=== PATIENT | female | born 1965 | race Asian ===

== ENCOUNTER → 2020-07-16 15:24 | Outpatient (CLI) | payer MEDICARE, SELFPAY ==
[2020-07-16 17:24] LABS: Basophil# 0.04 X10^3/uL; Basophil% 0.4 % (0-1); Eosinophil# 0.09 X10^3/uL; Eosinophils% 0.9 % (0-5); Hematocrit 46.9 % (37-47); Hemoglobin 15.3 g/dL (12.0-15.0); Lymphocyte % 23.7 % (19-41); Mean Corp Hgb Conc 32.6 g/dL (32-36); Mean Corpuscular Hgb 30.6 pg (27.0-32.0); Mean Corpuscular Volume 93.8 fL (81-99); Mean Platelet Vol. 9.8 fl (6.2-12.0); Monocyte# 0.54 X10^3/uL; Monocyte% 5.3 % (0-10); NRBC Flagged by Analyzer 0 % (0-5); Neutrophil # 7.04 X10^3/uL (2.7-7.7); Neutrophil % 69.4 % (47-70); Platelet Count 261 K/mm3 (150-450); RBC Distribution Width CV 12.1 % (11.6-14.6); RBC Distribution Width SD 41.9 fl (35.1-43.9); White Blood Count 10.1 K/mm3 (4.4-11.0)
[2020-07-16 18:44] LABS: AST(SGOT) 17 U/L (15-37); Alanine Aminotransfer ALT/SGPT 23 U/L (13-56); Alkaline Phosphatase 69 U/L (45-117); Anion Gap 8 (5-15); BUN 9 mg/dL (7-18); BUN/Creat Ratio 10.2 RATIO (10-20); Calcium,Total 9.7 mg/dL (8.5-10.1); Chloride 102 mmol/L (98-107); Creatinine, Serum 0.88 mg/dL (0.55-1.02); EST Glomerular Filtration Rate 70 mL/min (>60); Est Glom Filt Rate - Afr Amer 85 mL/min (>60); Globulin 4.1 g/dL (2.2-4.2); Glucose 114 mg/dL (74-106); Potassium 3.7 mmol/L (3.5-5.1); Protein, Total 8.1 g/dL (6.4-8.2); Sodium Level 138 mmol/L (136-145); Thyroid Stim Hormone (TSH) 1.87 uIU/mL (0.358-3.74)
[2020-07-17 09:27] LABS: Hepatitis C Antibody Non-Reactive (Nonreactive)
== END ==
PROVIDERS: PCP Family Medicine Geriatric Medicine; Visit Provider Family Medicine Geriatric Medicine
DX: F31.9 Bipolar disorder, unspecified (principal); R53.83 Other fatigue; Z13.89 Encounter for screening for other disorder
CPT/HCPCS: 36415; 80053; 80178; 84443; 85025; 86803

== ENCOUNTER → 2020-07-20 09:47 | Outpatient (CLI) | payer MEDICARE, SELFPAY ==
--- NOTE | 2020-07-20 09:54 | CT_ITS ---
STUDY: CT CHEST WITHOUT CONTRAST- LOW DOSE SCREENING PROTOCOL REASON FOR EXAM: Female, 54 years old. Former smoker. Quit smoking less than 20 years ago. 10 pack per year history. No current symptoms of lung cancer or pulmonary infection. Shared decision-making with referring PCP documented in patient''s record. RADIATION DOSAGE (If Supplied By Facility): CTDIvol = ( 2.01 ) mGy, DLP = ( 56.65 ) mGycm TECHNIQUE: Low dose screening CT examination performed from the base of the neck to the upper abdomen. Sagittal and coronal reformatted images performed. Sagittal and coronal MIP images provided. The measurements provided are average, rounded measurements per ACR guidelines. COMPARISON: None. FINDINGS: The lungs are normal. There is no demonstrated pleural abnormality. Normal heart and pericardium. Normal mediastinum. Normal hilar regions. Normal unenhanced pulmonary arteries. Normal aorta arch and descending thoracic aorta. Normal osseous structures. There is no demonstrated abnormality of the visualized upper abdomen. CT/Low Dose CT Lung Screening IMPRESSION: 1. No significant indeterminate incidental findings requiring additional imaging. 2. Incidental findings include mild bilateral apical scarring.. ASSESSMENT CATEGORY: LungRADS 1 - Negative. Continue annual screening with LDCT in 12 months, per established ACR guidelines. Electronically Signed: Nahum Rao MD at 12:16 EST Tel , Service support ,
== END ==
PROVIDERS: PCP Family Medicine Geriatric Medicine; Referring Provider Family Medicine Geriatric Medicine; Visit Provider Family Medicine Geriatric Medicine
DX: Z87.891 Personal history of nicotine dependence (principal)
CPT/HCPCS: 71271

== ENCOUNTER → 2020-07-29 10:19 | Outpatient (CLI) | payer MEDICARE, SELFPAY ==
--- NOTE | 2020-07-29 10:23 | BI_ITS ---
MAMMOGRAPHY - BILATERAL SCREENING 3-D TOMOSYNTHESIS REASON FOR EXAM: Female, 54 years old. SCREENING PERTINENT HISTORY: Previous right lumpectomy. TECHNIQUE: 2-D mammograms and 3-D Tomosynthesis of the breast (s) were performed. CAD was performed. COMPARISON: 2018 FINDINGS: The breast composition is composed of scattered fibroglandular density. Scattered benign calcifications are seen. No dense spiculated masses or suspicious microcalcifications are identified. Stable architectural distortion in the right breast from previous surgery.. There is no skin thickening or retraction. There has been no significant change since the prior study. BI/SCRN MAMM (CAD)W/ALINE BILAT IMPRESSION: No mammographic signs of malignancy. Routine yearly mammograms recommended. ASSESSMENT CATEGORY: BIRADS Category 2: Benign. A letter regarding these results will be sent to the patient by the facility within 30 days. FOLLOW UP RECOMMENDATION: Yearly follow up mammogram recommended. (A) Approximately 10% of breast cancers are not detected by mammography. A normal mammogram should not delay biopsy of a clinically suspicious abnormality. Electronically Signed: Rambo Barnes MD at 14:52 EDT , Service support ,
== END ==
PROVIDERS: PCP Family Medicine Geriatric Medicine; Referring Provider Family Medicine Geriatric Medicine; Visit Provider Family Medicine Geriatric Medicine
DX: Z12.31 Encounter for screening mammogram for malignant neoplasm of breast (principal)
CPT/HCPCS: 77063; 77067

== ENCOUNTER → 2020-08-26 10:55 | Outpatient (CLI) | payer MEDICARE, SELFPAY | PROVIDERS: PCP Family Medicine Geriatric Medicine; Visit Provider Family Medicine Geriatric Medicine | DX: F31.9 Bipolar disorder, unspecified (principal) | CPT/HCPCS: 36415; 80178 ==

== ENCOUNTER → 2020-09-06 09:06 | Outpatient (CLI) | payer MEDICARE, SELFPAY ==
[2020-09-06 09:40] LABS: Hematocrit 44.9 % (37-47); Hemoglobin 14.5 g/dL (12.0-15.0); Mean Corp Hgb Conc 32.3 g/dL (32-36); Mean Corpuscular Hgb 30.2 pg (27.0-32.0); Mean Corpuscular Volume 93.5 fL (81-99); Mean Platelet Vol. 9.3 fl (6.2-12.0); Platelet Count 196 K/mm3 (150-450); RBC Distribution Width CV 11.9 % (11.6-14.6); RBC Distribution Width SD 41.2 fl (35.1-43.9); White Blood Count 7.3 K/mm3 (4.4-11.0)
[2020-09-06 09:57] LABS: Hemoglobin A1c 5.4 % (3.8-5.6)
[2020-09-06 10:27] LABS: Vitamin D,25 Hydroxy 19.1 ng/mL
[2020-09-06 10:36] LABS: ALB/GLOB Ratio 0.9 RATIO (0.9-2.4); AST(SGOT) 16 U/L (15-37); Alanine Aminotransfer ALT/SGPT 19 U/L (13-56); Albumin, Serum 3.7 g/dL (3.2-5.0); Alkaline Phosphatase 61 U/L (45-117); Anion Gap 5 (5-15); BUN 14 mg/dL (7-18); BUN/Creat Ratio 16.6 RATIO (10-20); Calcium,Total 8.9 mg/dL (8.5-10.1); Chloride 108 mmol/L (98-107); Cholesterol 206 mg/dL (200); Creatinine, Serum 0.84 mg/dL (0.55-1.02); EST Glomerular Filtration Rate 74 mL/min (>60); Est Glom Filt Rate - Afr Amer 90 mL/min (>60); Glucose 107 mg/dL (74-106); High Density Lipoprotein 75 mg/dL; Potassium 3.8 mmol/L (3.5-5.1); Prolactin 90.8 ng/mL; Protein, Total 7.7 g/dL (6.4-8.2); Sodium Level 140 mmol/L (136-145); Thyroid Stim Hormone (TSH) 2.87 uIU/mL (0.358-3.74); Triglycerides 108 mg/dL; Very Low Density Lipoprotein 22 mg/dL (5-40)
== END ==
PROVIDERS: PCP Family Medicine Geriatric Medicine
DX: E55.9 Vitamin D deficiency, unspecified (principal); E78.2 Mixed hyperlipidemia; Z79.899 Other long term (current) drug therapy
CPT/HCPCS: 36415; 80053; 80061; 80178; 82306; 83036; 84146; 84443; 85027

== ENCOUNTER → 2020-11-01 11:40 | Outpatient (CLI) | payer MEDICARE, SELFPAY | PROVIDERS: PCP Family Medicine Geriatric Medicine; Referring Provider Internal Medicine Gastroenterology; Visit Provider Internal Medicine Gastroenterology | DX: F25.9 Schizoaffective disorder, unspecified (principal); F31.9 Bipolar disorder, unspecified | CPT/HCPCS: 36415; 80178 ==

== ENCOUNTER → 2020-11-04 | Outpatient (CLI) | payer MEDICARE, SELFPAY ==
--- NOTE | 2020-11-04 12:15 | COLBX_PTH ---
PATIENT: ANICETO BERNAL LOC: [facility] U#:[id number] AGE/SX: 55/F ROOM: RE11/04/[address]: Dr. Sebas Brooks MD : 1965 BED: DIS: 11/04/2020 SPEC #: [id number] RECD: 11/04/20 14:58 STATUS: MELISSA RESierra #: [id number] RAMYA: 11/04/20 12:[address]: Sebas Brooks DEPT: SURGICAL PATHOLOGY RECD BY: Lynn Funes ENTERED: 11/05/20 08:08 SP TYPE: COLON BX OTHR DR: Dr. Mahin Thomas MD [facility] Tissues: COLON BIOPSY Procedures: Surgery Specimen Level IV HEADER OPERATION: Colonoscopy with polypectomy PRE-OP DIAGNOSIS: Positive stool test TISSUE SUBMITTED: Right colon polyp, rule out adenoma MICROSCOPIC DIAGNOSIS Right colon polyp, biopsy: Fragments of tubular adenoma. AM:layla 11/06/2020 MICROSCOPIC DESCRIPTION Slides are reviewed. GROSS DESCRIPTION Received in fixative is one container labeled with the patient's name and designated right colon. The specimen consists of multiple irregular fragments of light velasquez soft tissue that in aggregate measure 0.8 x 0.2 x 0.1 cm. The specimen is totally submitted in one cassette. / SJ:rg 11/05/20 TC:5 CPT: 53733
== END | disposition home or self-care (01) ==
LOC: LAB 15:23 → LABSPEC 15:25
PROVIDERS: PCP Family Medicine Geriatric Medicine; Visit Provider Internal Medicine Gastroenterology
DX: R19.5 Other fecal abnormalities (principal)
CPT/HCPCS: 88305

== ENCOUNTER 2021-07-17 13:06 | Outpatient (CLI) | payer MEDICARE, SELFPAY ==
[2021-07-17 17:45] LABS: Absolute Lymphocyte Count 1.71 X10^3/uL (0.83-4.51); Absolute Neutrophil Count 4.3 X10^3/uL (2.0-7.7); Basophil# 0.03 X10^3/uL; Basophil% 0.5 % (0-1); Eosinophil# 0.08 X10^3/uL; Eosinophils% 1.2 % (0-5); Hematocrit 43.9 % (37-47); Hemoglobin 14.8 g/dL (12.0-15.0); Lymphocyte # 1.71 X10^3/ul (0.83-4.51); Lymphocyte % 26.2 % (19-41); Mean Corp Hgb Conc 33.7 g/dL (32-36); Mean Corpuscular Hgb 30.3 pg (27.0-32.0); Monocyte# 0.38 X10^3/uL; Monocyte% 5.8 % (0-10); NRBC Flagged by Analyzer 0 % (0-5); Neutrophil # 4.31 X10^3/uL (2.7-7.7); Platelet Count 220 K/mm3 (150-450); RBC Distribution Width CV 11.9 % (11.6-14.6); RBC Distribution Width SD 38.7 fl (35.1-43.9); Red Blood Count 4.88 M/mm3 (4.2-5.4); White Blood Count 6.5 K/mm3 (4.4-11.0)
[2021-07-17 18:09] LABS: ALB/GLOB Ratio 0.9 RATIO (0.9-2.4); AST(SGOT) 14 U/L (15-37); Alanine Aminotransfer ALT/SGPT 17 U/L (13-56); Albumin, Serum 3.8 g/dL (3.2-5.0); Alkaline Phosphatase 68 U/L (45-117); Anion Gap 4 (5-15); BUN 8 mg/dL (7-18); BUN/Creat Ratio 9.5 RATIO (10-20); Calcium,Total 8.9 mg/dL (8.5-10.1); Chloride 106 mmol/L (98-107); Creatinine, Serum 0.84 mg/dL (0.55-1.02); EST Glomerular Filtration Rate 75 mL/min (>60); Est Glom Filt Rate - Afr Amer 90 mL/min (>60); Globulin 4.1 g/dL (2.2-4.2); Glucose 120 mg/dL (74-106); Potassium 3.7 mmol/L (3.5-5.1); Protein, Total 7.9 g/dL (6.4-8.2); Sodium Level 139 mmol/L (136-145); Thyroid Stim Hormone (TSH) 1.33 uIU/mL (0.358-3.74)
== END 2021-07-17 23:59 | disposition home or self-care (01) ==
LOC: POLAB3 13:08
PROVIDERS: PCP Family Medicine Geriatric Medicine; Visit Provider Family Medicine Geriatric Medicine
DX: R53.83 Other fatigue (principal)
CPT/HCPCS: 36415; 80053; 84443; 85025

== ENCOUNTER 2021-08-05 13:28 | Outpatient (CLI) | payer MEDICARE, SELFPAY ==
--- NOTE | 2021-08-05 13:34 | BI_ITS ---
MAMMOGRAPHY - BILATERAL SCREENING REASON FOR EXAM: Female, 55 years old. Routine annual screening examination. PERTINENT HISTORY: Personal history of breast cancer. Prior right lumpectomy and radiation treatment. TECHNIQUE: Digital bilateral breast aline (3D mammographic acquisition) in the CC and MLO projections. 2-D mediolateral oblique (MLO) and craniocaudad (CC) views of both breasts were obtained. CAD: Full Field Digital Mammography with Computer Added Detection was performed. COMPARISON: Comparison is made with prior study dated 07/29/2020. FINDINGS: Breast Composition: There are scattered areas of fibroglandular density. There are no dominant masses or suspicious calcifications. The patient is status post lumpectomy in the deep upper lateral aspect of the right breast with resultant postoperative deformity and skin thickening. Stable small benign appearing bilateral axillary lymph nodes. No other significant abnormalities are identified. There has been no significant change since the prior study. BI/SCRN MAMM (CAD)W/ALINE BILAT IMPRESSION: Stable bilateral screening mammogram. Yearly follow-up mammogram recommended. (A) ASSESSMENT CATEGORY: BIRADS Category 2: Benign. A letter regarding these results will be sent to the patient by the facility within 30 days. Approximately 10% of breast cancers are not detected by mammography. A normal mammogram should not delay biopsy of a clinically suspicious abnormality. [id number] Electronically Signed: Romeo English MD at 14:25 EDT ,
== END 2021-08-05 23:59 | disposition home or self-care (01) ==
PROVIDERS: PCP Family Medicine Geriatric Medicine; Visit Provider Family Medicine Geriatric Medicine
DX: Z12.31 Encounter for screening mammogram for malignant neoplasm of breast (principal); Z85.3 Personal history of malignant neoplasm of breast
CPT/HCPCS: 77063; 77067

== ENCOUNTER 2021-11-20 07:37 | Outpatient (CLI) | payer MEDICARE, SELFPAY ==
[2021-11-20 08:56] LABS: Vitamin D,25 Hydroxy 11.7 ng/mL
[2021-11-20 09:56] LABS: ALB/GLOB Ratio 0.9 RATIO (0.9-2.4); AST(SGOT) 11 U/L (15-37); Alanine Aminotransfer ALT/SGPT 13 U/L (13-56); Albumin, Serum 3.7 g/dL (3.2-5.0); Alkaline Phosphatase 62 U/L (45-117); Anion Gap 6 (5-15); BUN 8 mg/dL (7-18); BUN/Creat Ratio 10.3 RATIO (10-20); Calcium,Total 9.1 mg/dL (8.5-10.1); Chloride 109 mmol/L (98-107); Creatinine, Serum 0.78 mg/dL (0.55-1.02); EST Glomerular Filtration Rate 82 mL/min (>60); Est Glom Filt Rate - Afr Amer 99 mL/min (>60); Globulin 4.1 g/dL (2.2-4.2); Glucose 95 mg/dL (74-106); Potassium 3.6 mmol/L (3.5-5.1); Prolactin 89.6 ng/mL; Protein, Total 7.8 g/dL (6.4-8.2); Sodium Level 141 mmol/L (136-145); Thyroid Stim Hormone (TSH) 5.09 uIU/mL (0.358-3.74)
== END 2021-11-20 23:59 | disposition home or self-care (01) ==
PROVIDERS: PCP Family Medicine Geriatric Medicine; Visit Provider Counselor Mental Health
DX: E55.9 Vitamin D deficiency, unspecified (principal); Z79.899 Other long term (current) drug therapy
CPT/HCPCS: 36415; 80053; 80178; 82306; 84146; 84443

== ENCOUNTER 2022-01-15 12:45 | Outpatient (CLI) | payer MEDICARE, SELFPAY ==
[2022-01-15 16:58] LABS: Absolute Lymphocyte Count 2.26 X10^3/uL (0.83-4.51); Basophil# 0.05 X10^3/uL; Basophil% 0.5 % (0-1); Hematocrit 43.4 % (37-47); Hemoglobin 14.3 g/dL (12.0-15.0); Lymphocyte # 2.26 X10^3/ul (0.83-4.51); Lymphocyte % 22.5 % (19-41); Mean Corp Hgb Conc 32.9 g/dL (32-36); Mean Corpuscular Hgb 29.9 pg (27.0-32.0); Mean Corpuscular Volume 90.8 fL (81-99); Mean Platelet Vol. 10.1 fl (6.2-12.0); Monocyte# 0.58 X10^3/uL; Monocyte% 5.8 % (0-10); NRBC Flagged by Analyzer 0 % (0-5); Neutrophil # 7.03 X10^3/uL (2.7-7.7); Neutrophil % 69.9 % (47-70); Platelet Count 248 K/mm3 (150-450); RBC Distribution Width CV 12.3 % (11.6-14.6); RBC Distribution Width SD 41.1 fl (35.1-43.9); Red Blood Count 4.78 M/mm3 (4.2-5.4); White Blood Count 10.1 K/mm3 (4.4-11.0)
[2022-01-15 17:16] LABS: ALB/GLOB Ratio 0.9 RATIO (0.9-2.4); AST(SGOT) 17 U/L (15-37); Alanine Aminotransfer ALT/SGPT 21 U/L (13-56); Albumin, Serum 3.7 g/dL (3.2-5.0); Alkaline Phosphatase 75 U/L (45-117); Anion Gap 9 (5-15); BUN 6 mg/dL (7-18); BUN/Creat Ratio 7.8 RATIO (10-20); Calcium,Total 9.5 mg/dL (8.5-10.1); Chloride 108 mmol/L (98-107); Creatinine, Serum 0.76 mg/dL (0.55-1.02); EST Glomerular Filtration Rate 83 mL/min (>60); Est Glom Filt Rate - Afr Amer 100 mL/min (>60); Globulin 4.2 g/dL (2.2-4.2); Glucose 113 mg/dL (74-106); Potassium 3.4 mmol/L (3.5-5.1); Protein, Total 7.9 g/dL (6.4-8.2); Sodium Level 140 mmol/L (136-145); Thyroid Stim Hormone (TSH) 1.39 uIU/mL (0.358-3.74); Vitamin D,25 Hydroxy 14.5 ng/mL
== END 2022-01-15 23:59 | disposition home or self-care (01) ==
LOC: POLAB3 12:47
PROVIDERS: PCP Family Medicine Geriatric Medicine; Visit Provider Family Medicine Geriatric Medicine
DX: R53.83 Other fatigue (principal); E55.9 Vitamin D deficiency, unspecified
CPT/HCPCS: 36415; 80053; 80178; 82306; 84443; 85025

== ENCOUNTER → 2022-07-23 | Outpatient (CLI) | payer MEDICARE, SELFPAY ==
[2022-07-23 15:07] LABS: Absolute Lymphocyte Count 2.02 X10^3/uL (0.83-4.51); Absolute Neutrophil Count 6.8 X10^3/uL (2.0-7.7); Basophil# 0.06 X10^3/uL; Basophil% 0.6 % (0-1); Eosinophil# 0.07 X10^3/uL; Eosinophils% 0.7 % (0-5); Hematocrit 46.1 % (37-47); Hemoglobin 14.9 g/dL (12.0-15.0); Lymphocyte # 2.02 X10^3/ul (0.83-4.51); Lymphocyte % 21.3 % (19-41); Mean Corp Hgb Conc 32.3 g/dL (32-36); Mean Corpuscular Hgb 30.2 pg (27.0-32.0); Mean Corpuscular Volume 93.5 fL (81-99); Mean Platelet Vol. 10.3 fl (6.2-12.0); Monocyte% 5.3 % (0-10); NRBC Flagged by Analyzer 0 % (0-5); Neutrophil % 71.8 % (47-70); Platelet Count 207 K/mm3 (150-450); RBC Distribution Width CV 12.1 % (11.6-14.6); RBC Distribution Width SD 41.6 fl (35.1-43.9); Red Blood Count 4.93 M/mm3 (4.2-5.4); White Blood Count 9.5 K/mm3 (4.4-11.0)
[2022-07-23 15:57] LABS: ALB/GLOB Ratio 0.9 RATIO (0.9-2.4); AST(SGOT) 18 U/L (15-37); Alanine Aminotransfer ALT/SGPT 24 U/L (13-56); Albumin, Serum 3.8 g/dL (3.2-5.0); Alkaline Phosphatase 63 U/L (45-117); Anion Gap 6 (5-15); BUN 8 mg/dL (7-18); BUN/Creat Ratio 9.2 RATIO (10-20); Calcium,Total 9.5 mg/dL (8.5-10.1); Chloride 103 mmol/L (98-107); Creatinine, Serum 0.87 mg/dL (0.55-1.02); EST Glomerular Filtration Rate 71 mL/min (>60); Est Glom Filt Rate - Afr Amer 86 mL/min (>60); Globulin 4.1 g/dL (2.2-4.2); Glucose 91 mg/dL (74-106); Potassium 3.6 mmol/L (3.5-5.1); Protein, Total 7.9 g/dL (6.4-8.2); Sodium Level 138 mmol/L (136-145); Thyroid Stim Hormone (TSH) 1.57 uIU/mL (0.358-3.74)
== END | disposition home or self-care (01) ==
PROVIDERS: PCP Family Medicine Geriatric Medicine; Referring Provider Family Medicine Geriatric Medicine; Visit Provider Family Medicine Geriatric Medicine
DX: R53.83 Other fatigue (principal)
CPT/HCPCS: 36415; 80053; 84443; 85025

== ENCOUNTER → 2022-08-12 | Outpatient (CLI) | payer MEDICARE, SELFPAY ==
--- NOTE | 2022-08-12 13:50 | BI_ITS ---
MAMMOGRAPHY - BILATERAL SCREENING REASON FOR EXAM: Female, 56 years old. Routine annual screening examination. PERTINENT HISTORY: Personal history of breast cancer. TECHNIQUE: Digital bilateral breast aline (3D mammographic acquisition) in the CC and MLO projections. 2-D mediolateral oblique (MLO) and craniocaudad (CC) views of both breasts were obtained. CAD: Full Field Digital Mammography with Computer Added Detection was performed. COMPARISON: Comparison is made with prior study August 05, 2021 and July 29, 2020. FINDINGS: Breast Composition: There are scattered areas of fibroglandular density. There are no dominant masses or suspicious calcifications. Once again, the patient is status post lumpectomy in the deep upper lateral aspect of the right breast with resultant postoperative deformity and skin thickening. Dystrophic calcification is seen in the axillary region of the breasts. Stable small benign-appearing axillary lymph nodes. No other significant abnormalities are identified. There has been no significant change since the prior study. BI/SCRN MAMM (CAD)W/ALINE BILAT IMPRESSION: Stable bilateral screening mammogram. Yearly follow-up mammogram recommended. (A) ASSESSMENT CATEGORY: BIRADS Category 2: Benign. A letter regarding these results will be sent to the patient by the facility within 30 days. Approximately 10% of breast cancers are not detected by mammography. A normal mammogram should not delay biopsy of a clinically suspicious abnormality. [id number] Electronically Signed: Romeo English MD at 15:02 EDT ,
--- NOTE | 2022-08-12 14:15 | US_ITS ---
STUDY: SUPERFICIAL ULTRASOUND - RIGHT GROIN. REASON FOR EXAM: Female, 56 years old. RT GROIN PALP LUMP TECHNIQUE: A superficial ultrasound was performed with real-time and static zuniga-scale imaging. COMPARISON: None. FINDINGS: The palpable abnormality corresponds to a 1.2 cm x 0.8 cm x 0.3 cm benign-appearing lymph node with a central echogenic hilum. US/Ext Non Vasc Limited/Soft Tiss IMPRESSION: The palpable abnormality corresponds to 1.2 cm x 0.8 cm x 0.3 cm benign-appearing lymph node. Electronically Signed: Romeo English MD at 10:04 EDT ,
== END | disposition home or self-care (01) ==
PROVIDERS: PCP Family Medicine Geriatric Medicine; Visit Provider Family Medicine Geriatric Medicine
DX: Z12.31 Encounter for screening mammogram for malignant neoplasm of breast (principal); Z85.3 Personal history of malignant neoplasm of breast
CPT/HCPCS: 76882; 77063; 77067

== ENCOUNTER → 2022-12-18 | Outpatient (CLI) | payer MEDICARE, SELFPAY ==
[2022-12-18 12:22] LABS: Absolute Lymphocyte Count 1.71 X10^3/uL (0.83-4.51); Absolute Neutrophil Count 5.9 X10^3/uL (2.0-7.7); Basophil# 0.04 X10^3/uL; Basophil% 0.5 % (0-1); Eosinophil# 0.07 X10^3/uL; Eosinophils% 0.9 % (0-5); Hematocrit 45.6 % (37-47); Hemoglobin 14.9 g/dL (12.0-15.0); Lymphocyte # 1.71 X10^3/ul (0.83-4.51); Mean Corp Hgb Conc 32.7 g/dL (32-36); Mean Corpuscular Hgb 30.8 pg (27.0-32.0); Mean Corpuscular Volume 94.2 fL (81-99); Mean Platelet Vol. 9.9 fl (6.2-12.0); Monocyte# 0.39 X10^3/uL; Monocyte% 4.8 % (0-10); NRBC Flagged by Analyzer 0 % (0-5); Neutrophil # 5.93 X10^3/uL (2.7-7.7); Neutrophil % 72.6 % (47-70); Platelet Count 230 K/mm3 (150-450); RBC Distribution Width SD 41.5 fl (35.1-43.9); Red Blood Count 4.84 M/mm3 (4.2-5.4); White Blood Count 8.2 K/mm3 (4.4-11.0)
[2022-12-18 12:46] LABS: Anion Gap 3 (5-15); BUN 5 mg/dL (7-18); BUN/Creat Ratio 5.6 RATIO (10-20); Calcium,Total 9.8 mg/dL (8.5-10.1); Chloride 107 mmol/L (98-107); EST Glomerular Filtration Rate 69 mL/min (>60); Est Glom Filt Rate - Afr Amer 83 mL/min (>60); Glucose 111 mg/dL (74-106); Potassium 3.9 mmol/L (3.5-5.1); Sodium Level 138 mmol/L (136-145)
[2022-12-18 13:11] LABS: Color, Urine Yellow (Yellow); Glucose, Dipstick Normal (Normal); Ketone-Dipstick Negative (Negative); Leukocyte Esterase-Dipstick Negative /ul (Negative); Nitrite-Dipstick Negative (Negative); Occult Blood-Urine Negative /ul (Negative); Protein-Dipstick Negative (Negative); Specific Gravity, Urine 1.005 (1.002-1.030); Urine Bilirubin Dipstick Negative (Negative); Urine Clarity Clear (Clear); Urine Urobilinogen Normal (Normal)
== END | disposition home or self-care (01) ==
LOC: POLAB3 11:28 → LABSPEC 12:48
PROVIDERS: PCP Family Medicine Geriatric Medicine; Referring Provider Family Medicine Geriatric Medicine; Visit Provider Family Medicine Geriatric Medicine
DX: N39.0 Urinary tract infection, site not specified (principal); I95.1 Orthostatic hypotension
CPT/HCPCS: 36415; 80048; 80178; 81002; 85025; 87086

== ENCOUNTER 2022-12-19 21:18 | Emergency (ER) | payer MEDICARE, SELFPAY ==
[2022-12-19 21:20] VITALS: BP 150/97; PULSE 65; RESP 18; TEMP 36.3; O2SAT 97; BMI 27.3
--- NOTE | 2022-12-19 21:35 | CT_ITS ---
STUDY: CT BRAIN WITHOUT CONTRAST REASON FOR EXAM: Female, 57 years old. Vertigo RADIATION DOSAGE (If Supplied By Facility): CTDIvol = ( 44.99 ) mGy, DLP = ( 812.98 ) mGycm TECHNIQUE: Transaxial CT imaging of the brain was performed without administration of intravenous contrast material. Individualized dose optimization techniques were used for this CT. COMPARISON: 11/08/2009 FINDINGS: Normal soft tissue structures. Normal calvarium. There is mild cerebral atrophy with widening of the extra-axial spaces and ventricular dilatation. There are areas of decreased attenuation within the white matter tracts of the supratentorial brain, consistent with microvascular disease changes. Normal basal ganglia and thalami. Normal brainstem. Normal cerebellum. There is no intracranial hemorrhage. There are no findings of an acute ischemic infarction. Normal visualized paranasal sinuses. CT/Brain/Head without Contrast IMPRESSION: Chronic involutional changes of the brain. Electronically Signed: Nahum Rao MD at 22:41 EDT ,
[2022-12-19 22:00] LABS: Absolute Lymphocyte Count 3.38 X10^3/uL (0.83-4.51); Absolute Neutrophil Count 6.5 X10^3/uL (2.0-7.7); Basophil# 0.06 X10^3/uL; Basophil% 0.5 % (0-1); Eosinophil# 0.18 X10^3/uL; Eosinophils% 1.6 % (0-5); Hematocrit 44.1 % (37-47); Hemoglobin 14.4 g/dL (12.0-15.0); Lymphocyte # 3.38 X10^3/ul (0.83-4.51); Lymphocyte % 30.9 % (19-41); Mean Corp Hgb Conc 32.7 g/dL (32-36); Mean Corpuscular Hgb 30.4 pg (27.0-32.0); Mean Platelet Vol. 9.5 fl (6.2-12.0); Monocyte# 0.79 X10^3/uL; Monocyte% 7.2 % (0-10); NRBC Flagged by Analyzer 0 % (0-5); Neutrophil # 6.51 X10^3/uL (2.7-7.7); Neutrophil % 59.5 % (47-70); Platelet Count 219 K/mm3 (150-450); RBC Distribution Width CV 11.9 % (11.6-14.6); Red Blood Count 4.74 M/mm3 (4.2-5.4)
[2022-12-19 22:20] LABS: Anion Gap 4 (5-15); BUN 6 mg/dL (7-18); BUN/Creat Ratio 6.2 RATIO (10-20); Calcium,Total 9.4 mg/dL (8.5-10.1); Chloride 108 mmol/L (98-107); Creatinine, Serum 0.97 mg/dL (0.55-1.02); EST Glomerular Filtration Rate 63 mL/min (>60); Est Glom Filt Rate - Afr Amer 76 mL/min (>60); Estimated Creatinine Clearance 45.41 ml/min; Glucose 117 mg/dL (74-106); Potassium 3.6 mmol/L (3.5-5.1); Sodium Level 139 mmol/L (136-145)
[2022-12-19 22:51] VITALS: BP 152/108; BP 155/114; BP 160/114; PULSE 55; PULSE 56; PULSE 60
[2022-12-19 22:56] VITALS: BP 155/114; PULSE 56; RESP 17
--- NOTE | 2022-12-19 23:19 | EDS_ITS ---
HPI History of Present Illness Chief Complaint: Dizziness Informant: patient Onset/Context/Timing Onset: Weeks Context: Gradual Onset Timing: Waxes and wanes Quality: Spinning Location: Head Worsened by: Nothing Relieved by: Nothing Narrative Narrative: Patient presents with dizziness that has been getting worse over the past few weeks. Patient states it came on gradually. Patient states it waxes and wanes. Patient states it feels like things are slowly spinning. Patient states nothing makes it worse and nothing makes it better. Patient does admit to some tinnitus that also comes and goes. Patient denies any fevers or chills. Patient denies any headaches. Patient denies any nausea or vomiting. Patient states that she saw her primary care physician for this. Patient states that her primary care physician reduced her dose of lithium because her lithium level was too high and he also started her on meclizine. Patient states that she has taken the meclizine but thinks that this makes it worse. [facility] Medical History (Updated 12/19/22 @ 23:[address] Gabo Zaragoza DO) Bipolar 1 disorder Schizo affective schizophrenia Home Medications benztropine 1 mg tablet 1 mg PO BID 12/19/22 [History Last Taken Unknown] lithium carbonate 150 mg capsule 300 mg PO DAILY 12/19/22 [History Last Taken Unknown] lithium carbonate 300 mg capsule 150 mg PO DAILY 12/19/22 [History Last Taken Unknown] meclizine 25 mg chewable tablet (Antivert) 25 mg PO 4X/DAY 12/19/22 [History Last Taken Unknown] risperidone 3 mg tablet (Risperdal) 1.5 mg PO DAILY 12/19/22 [History Last Taken Unknown] Allergy/AdvReac Type Severity Reaction Status Date / Time No Known Allergies Allergy Verified 12/19/22 21:18 Surgical History (Updated 12/19/22 @ 23:[address] Gabo Zaragoza DO) Hx of partial mastectomy Social History Smoking Status: Never smoker ROS ROS ED Constitutional Constitutional ED: Denies chills or fever(s) Eyes Eyes: Denies blurry vision or change in vision ENT ENT ED: Denies rhinorrhea or sore throat Cardiovascular Cardiovascular: Denies chest pain or palpitations Respiratory/Chest Respiratory/Chest: Denies cough or dyspnea Gastrointestinal Gastrointestinal: Denies nausea or vomiting Genitourinary Genitourinary ED: Denies dysuria or hematuria Musculoskeletal Musculoskeletal: Denies back pain or neck pain Integumentary Denies abscess or rash Neurologic Neurologic: Denies headache(s) or weakness Allergic/Immunologic Allergic/Immunologic ED: Denies mouth swelling or urticaria EXAM Physical Exam Const Vital Signs: 12/19/22 21:20 12/19/22 21:28 12/19/22 22:51 Temperature 97.4 F L Temperature Source Temporal Pulse Rate 65 Pulse Rate [Lying] 55 L Pulse Rate [Sitting (for 1 minute prior to obtaining)] 56 L Pulse Rate [Standing (for 1 minute prior to obtaining)] 60 Respiratory Rate 18 Respiratory Effort Normal Respiratory Pattern Normal Blood Pressure 150/97 H Blood Pressure [Lying] 152/108 H Blood Pressure [Sitting (for 1 minute prior to obtaining)] 160/114 H Blood Pressure [Standing (for 1 minute prior to obtaining)] 155/114 H Blood Pressure Mean 114 Blood Pressure Mean [Lying] 122 Blood Pressure Mean [Sitting (for 1 minute prior to obtaining)] 129 Blood Pressure Mean [Standing (for 1 minute prior to obtaining)] 127 Pulse Ox 97 Oxygen Delivery Method Room Air Positive well nourished and well developed General Appearance ED: well developed and NAD HEENT Reports moist mucous membranes Eyes PERRL and EOMs intact bilaterally Eyes Narrative: There is no nystagmus noted. Neck supple and no JVD Resp normal respiratory effort and clear to auscultation bilaterally Cardio regular rate, regular rhythm and no murmurs GI normal to inspection, nondistended, normoactive bowel sounds and non-tender Palpation: soft Extremity normal to inspection General Extremety ED: Negative for edema or tenderness General Extremity: Negative for edema Neuro oriented x3, CN's II-XII intact bilaterally and no sensory deficits noted Sensorium / Orientation: alert Motor Exam: strength 5/5 throughout Psych mental status grossly normal Skin no rashes or lesions noted MDM MDM MDM Narrative Medical decision making narrative: There transferred diagnosis includes central vertigo, peripheral vertigo, stroke, electrolyte abnormality, lithium toxicity, anemia, dehydration, and anxiety. CBC will be obtained to assess for leukocytosis and anemia. Basic metabolic profile will be obtained to assess for electrolyte abnormality and renal function. [place] level will be obtained to assess for lithium toxicity. CT scan of the brain will be obtained to assess for stroke and central vertigo. Lab Data Attestation: I reviewed the patient's lab results. Lab results narrative: CBC was reviewed and was within normal limits. Basic metabolic profile was reviewed and was within normal limits. [place] level was reviewed and was therapeutic at 0.90. Labs: Laboratory Results - last 24 hr 12/19/22 21:50 WBC 11.0 RBC 4.74 Hgb 14.4 Hct 44.1 MCV 93.0 MCH 30.4 MCHC 32.7 RDW Std Deviation 41.0 RDW Coeff of Bonnie 11.9 Plt Count 219 MPV 9.5 Immature Gran % (Auto) 0.300 Neut % (Auto) 59.5 Lymph % (Auto) 30.9 Hand % (Auto) 7.2 Eos % (Auto) 1.6 Baso % (Auto) 0.5 Absolute Neuts (auto) 6.5 Absolute Lymphs (auto) 3.38 Nucleated RBC % 0 Sodium 139 Potassium 3.6 Chloride 108 H Carbon Dioxide 27.0 Anion Gap 4 L BUN 6 L Creatinine 0.97 Estim Creat Clear Calc 45.41 Est GFR (MDRD) Af Amer 76 Est GFR (MDRD) Non-Af 63 BUN/Creatinine Ratio 6.2 L Glucose 117 H Calcium 9.4 [place] 0.90 Radiography Diagnostic Testing: Clinical Impression(s) from Imaging Studies Brain CT 12/19/22 21:35 IMPRESSION: Chronic involutional changes of the brain. Electronically Signed: Nahum Rao MD at 22:41 EDT , CT scan of the brain was obtained. There is no acute intracranial abnormality. There are chronic involutional changes noted. This was interpreted by the radiologist and was also independently reviewed by myself. Treatment and Re-Evaluation :: Orthostatic vital signs were reviewed and were negative. Patient was ordered a dose of Valium here. Patient declined this. Patient states she does not want to take benzodiazepines. I discussed with the patient that the only medications for vertigo are benzodiazepine such as Valium and antihistamine such as meclizine. Explained to the patient that since the meclizine seems to be making her dizziness worse, Valium would probably be a better alternative. Patient still does not want to take Valium. Patient was advised to drink plenty of fluids. Patient was instructed to follow-up with her primary care physician in 5 to 7 days for further evaluation. Patient understood and was agreeable with the plan. All questions were answered. Discharge Plan Triage Chief Complaint: Dizziness ED Provider: Gabo Zaragoza Dx/Rx/DC Orders Clinical Impression: Dizziness, Bipolar disorder, Schizoaffective disorder Instructions: ED Dizziness, Uncertain Cause Prescriptions: No Action lithium carbonate 300 mg capsule 150 mg PO DAILY lithium carbonate 150 mg capsule 300 mg PO DAILY benztropine 1 mg tablet 1 mg PO BID risperidone [Risperdal] 3 mg tablet 1.5 mg PO DAILY meclizine [Antivert] 25 mg tablet,chewable 25 mg PO 4X/DAY Primary Care Provider: Mahin Thomas Chi Referrals: Mahin Thomas Chi, MD [Primary Care Provider] - 3-5 Days Disposition Disposition: Home, Self Care
== END 2022-12-19 23:49 | disposition home or self-care (01) ==
PROVIDERS: Emergency Provider Emergency Medicine; PCP Family Medicine Geriatric Medicine; Visit Provider Emergency Medicine
DX: R42 Dizziness and giddiness (principal); F25.9 Schizoaffective disorder, unspecified; F31.9 Bipolar disorder, unspecified; H93.19 Tinnitus, unspecified ear; Z79.899 Other long term (current) drug therapy
CPT/HCPCS: 70450; 80048; 80178; 85025; 99285; A4216

== ENCOUNTER → 2022-12-21 | Outpatient (CLI) | payer MEDICARE, SELFPAY ==
[2022-12-21 17:39] LABS: AST(SGOT) 16 U/L (15-37); Alanine Aminotransfer ALT/SGPT 17 U/L (13-56); Albumin, Serum 3.8 g/dL (3.2-5.0); Alkaline Phosphatase 59 U/L (45-117); Anion Gap 5 (5-15); BUN 6 mg/dL (7-18); BUN/Creat Ratio 6.8 RATIO (10-20); Calcium,Total 9.3 mg/dL (8.5-10.1); Chloride 108 mmol/L (98-107); Creatinine, Serum 0.88 mg/dL (0.55-1.02); EST Glomerular Filtration Rate 70 mL/min (>60); Est Glom Filt Rate - Afr Amer 85 mL/min (>60); Free T3 1.9 pg/mL (2.18-3.98); Globulin 3.8 g/dL (2.2-4.2); Glucose 104 mg/dL (74-106); Potassium 3.7 mmol/L (3.5-5.1); Protein, Total 7.6 g/dL (6.4-8.2); Sodium Level 140 mmol/L (136-145); T4 Free Direct 0.97 ng/dL (0.76-1.46); Thyroid Stim Hormone (TSH) 1.74 uIU/mL (0.358-3.74)
== END | disposition home or self-care (01) ==
PROVIDERS: PCP Family Medicine Geriatric Medicine; Visit Provider Counselor Mental Health
DX: Z79.899 Other long term (current) drug therapy (principal)
CPT/HCPCS: 36415; 80053; 80178; 84439; 84443; 84481

== ENCOUNTER → 2022-12-25 | Outpatient (CLI) | payer MEDICARE, SELFPAY | END | disposition home or self-care (01) | LOC: LAB 08:48 | PROVIDERS: PCP Family Medicine Geriatric Medicine; Referring Provider Family Medicine Geriatric Medicine; Visit Provider Family Medicine Geriatric Medicine | DX: F20.9 Schizophrenia, unspecified (principal); F31.9 Bipolar disorder, unspecified | CPT/HCPCS: 36415; 80178 ==

== ENCOUNTER → 2023-01-21 | Outpatient (CLI) | payer MEDICARE, SELFPAY ==
[2023-01-21 15:17] LABS: Absolute Lymphocyte Count 2.16 X10^3/uL (0.83-4.51); Absolute Neutrophil Count 5.1 X10^3/uL (2.0-7.7); Basophil# 0.04 X10^3/uL; Basophil% 0.5 % (0-1); Eosinophil# 0.08 X10^3/uL; Hematocrit 43.6 % (37-47); Hemoglobin 14.8 g/dL (12.0-15.0); Lymphocyte # 2.16 X10^3/ul (0.83-4.51); Lymphocyte % 27.5 % (19-41); Mean Corp Hgb Conc 33.9 g/dL (32-36); Mean Corpuscular Hgb 31.4 pg (27.0-32.0); Mean Corpuscular Volume 92.6 fL (81-99); Mean Platelet Vol. 9.5 fl (6.2-12.0); Monocyte# 0.44 X10^3/uL; Monocyte% 5.6 % (0-10); NRBC Flagged by Analyzer 0 % (0-5); Neutrophil # 5.12 X10^3/uL (2.7-7.7); Neutrophil % 65.1 % (47-70); Platelet Count 226 K/mm3 (150-450); RBC Distribution Width CV 11.9 % (11.6-14.6); RBC Distribution Width SD 40.4 fl (35.1-43.9); Red Blood Count 4.71 M/mm3 (4.2-5.4); White Blood Count 7.9 K/mm3 (4.4-11.0)
[2023-01-21 15:50] LABS: ALB/GLOB Ratio 0.9 RATIO (0.9-2.4); AST(SGOT) 15 U/L (15-37); Alanine Aminotransfer ALT/SGPT 17 U/L (13-56); Albumin, Serum 3.6 g/dL (3.2-5.0); Alkaline Phosphatase 60 U/L (45-117); Anion Gap 3 (5-15); BUN 6 mg/dL (7-18); BUN/Creat Ratio 7.6 RATIO (10-20); Chloride 110 mmol/L (98-107); Creatinine, Serum 0.79 mg/dL (0.55-1.02); EST Glomerular Filtration Rate 80 mL/min (>60); Est Glom Filt Rate - Afr Amer 97 mL/min (>60); Glucose 119 mg/dL (74-106); Potassium 3.5 mmol/L (3.5-5.1); Protein, Total 7.6 g/dL (6.4-8.2); Sodium Level 140 mmol/L (136-145); Thyroid Stim Hormone (TSH) 1.58 uIU/mL (0.358-3.74)
== END | disposition home or self-care (01) ==
LOC: POLAB3 14:25
PROVIDERS: PCP Family Medicine Geriatric Medicine; Visit Provider Family Medicine Geriatric Medicine
DX: R53.83 Other fatigue (principal); Z79.899 Other long term (current) drug therapy
CPT/HCPCS: 36415; 80053; 80178; 84443; 85025

== ENCOUNTER → 2023-02-23 | Outpatient (CLI) | payer MEDICARE, SELFPAY | END | disposition home or self-care (01) | LOC: POLAB3 14:30 | PROVIDERS: PCP Family Medicine Geriatric Medicine; Visit Provider Counselor Mental Health | DX: F20.9 Schizophrenia, unspecified (principal); F31.9 Bipolar disorder, unspecified | CPT/HCPCS: 36415; 80178 ==

== ENCOUNTER → 2023-03-01 | Outpatient (CLI) | payer MEDICARE, SELFPAY | END | disposition home or self-care (01) | LOC: LAB.FUTURE 06:02 | PROVIDERS: PCP Family Medicine Geriatric Medicine; Visit Provider Counselor Mental Health | DX: Z79.899 Other long term (current) drug therapy (principal) ==

== ENCOUNTER → 2023-03-25 | Outpatient (CLI) | payer MEDICARE, SELFPAY | END | disposition home or self-care (01) | LOC: POLAB3 10:44 | PROVIDERS: PCP Family Medicine Geriatric Medicine; Visit Provider Counselor Mental Health | DX: Z79.899 Other long term (current) drug therapy (principal) | CPT/HCPCS: 36415; 80178 ==

== ENCOUNTER → 2023-04-08 | Outpatient (CLI) | payer MEDICARE, SELFPAY ==
[2023-04-08 09:17] LABS: Hematocrit 47.6 % (37-47); Hemoglobin 15.3 g/dL (12.0-15.0); Mean Corp Hgb Conc 32.1 g/dL (32-36); Mean Corpuscular Hgb 30.2 pg (27.0-32.0); Mean Corpuscular Volume 94.1 fL (81-99); Mean Platelet Vol. 9.4 fl (6.2-12.0); Platelet Count 228 K/mm3 (150-450); RBC Distribution Width CV 11.9 % (11.6-14.6); Red Blood Count 5.06 M/mm3 (4.2-5.4); White Blood Count 8.5 K/mm3 (4.4-11.0)
[2023-04-08 09:45] LABS: Thyroid Stim Hormone (TSH) 1.82 uIU/mL (0.358-3.74)
== END | disposition home or self-care (01) ==
LOC: LAB 08:41
PROVIDERS: PCP Family Medicine Geriatric Medicine; Referring Provider Counselor Mental Health; Visit Provider Counselor Mental Health
DX: Z79.899 Other long term (current) drug therapy (principal)
CPT/HCPCS: 36415; 80178; 84443; 85027

== ENCOUNTER → 2023-04-12 | Outpatient (CLI) | payer MEDICARE, SELFPAY | END | disposition home or self-care (01) | LOC: POLAB3 15:48 | PROVIDERS: PCP Family Medicine Geriatric Medicine; Visit Provider Family Medicine Geriatric Medicine | DX: R30.0 Dysuria (principal) | CPT/HCPCS: 87086 ==

== ENCOUNTER 2023-06-21 09:00 | Outpatient (RCR) | payer MEDICARE, SELFPAY | END 2023-07-08 18:00 | disposition home or self-care (01) | LOC: LAB 09:00 | PROVIDERS: PCP Family Medicine Geriatric Medicine; Visit Provider Counselor Mental Health | DX: Z79.899 Other long term (current) drug therapy (principal) | CPT/HCPCS: 36415; 80178 ==

== ENCOUNTER → 2023-10-13 | Outpatient (CLI) | payer MEDICARE, SELFPAY ==
[2023-10-13 17:05] LABS: Absolute Lymphocyte Count 2.63 X10^3/uL (0.83-4.51); Absolute Neutrophil Count 6.2 X10^3/uL (2.0-7.7); Basophil# 0.06 X10^3/uL; Basophil% 0.6 % (0-1); Eosinophil# 0.14 X10^3/uL; Eosinophils% 1.5 % (0-5); Hematocrit 41.8 % (37-47); Hemoglobin 13.4 g/dL (12.0-15.0); Lymphocyte # 2.63 X10^3/ul (0.83-4.51); Lymphocyte % 27.3 % (19-41); Mean Corp Hgb Conc 32.1 g/dL (32-36); Mean Corpuscular Hgb 29.9 pg (27.0-32.0); Mean Corpuscular Volume 93.3 fL (81-99); Monocyte# 0.62 X10^3/uL; Monocyte% 6.4 % (0-10); NRBC Flagged by Analyzer 0 % (0-5); Neutrophil # 6.16 X10^3/uL (2.7-7.7); Neutrophil % 63.9 % (47-70); Platelet Count 208 K/mm3 (150-450); RBC Distribution Width CV 11.9 % (11.6-14.6); RBC Distribution Width SD 40.4 fl (35.1-43.9); Red Blood Count 4.48 M/mm3 (4.2-5.4); White Blood Count 9.6 K/mm3 (4.4-11.0)
[2023-10-13 17:28] LABS: Vitamin B12 337 pg/mL (211-911)
[2023-10-13 17:33] LABS: ALB/GLOB Ratio 1.1 RATIO (0.9-2.4); AST(SGOT) 16 U/L (15-37); Alanine Aminotransfer ALT/SGPT 15 U/L (13-56); Albumin, Serum 3.8 g/dL (3.2-5.0); Alkaline Phosphatase 65 U/L (45-117); Anion Gap 5 (5-15); BUN 9 mg/dL (7-18); BUN/Creat Ratio 11.9 RATIO (10-20); Calcium,Total 8.9 mg/dL (8.5-10.1); Chloride 109 mmol/L (98-107); Cholesterol 184 mg/dL (200); Creatinine, Serum 0.76 mg/dL (0.55-1.02); EST Glomerular Filtration Rate 83 mL/min (>60); Est Glom Filt Rate - Afr Amer 101 mL/min (>60); Globulin 3.6 g/dL (2.2-4.2); Glucose 89 mg/dL (74-106); High Density Lipoprotein 59 mg/dL; Potassium 3.7 mmol/L (3.5-5.1); Protein, Total 7.4 g/dL (6.4-8.2); Sodium Level 140 mmol/L (136-145); T4 Free Direct 0.86 ng/dL (0.76-1.46); Thyroid Stim Hormone (TSH) 2.04 uIU/mL (0.358-3.74); Triglycerides 170 mg/dL; Very Low Density Lipoprotein 34 mg/dL (5-40)
== END | disposition home or self-care (01) ==
LOC: BIMLAB 15:35
PROVIDERS: PCP Internal Medicine; Referring Provider Internal Medicine; Visit Provider Internal Medicine
DX: F31.9 Bipolar disorder, unspecified (principal); F25.9 Schizoaffective disorder, unspecified; F03.90 Unspecified dementia, unspecified severity, without behavioral disturbance, psychotic disturbance, mood disturbance, and anxiety; Z13.6 Encounter for screening for cardiovascular disorders
CPT/HCPCS: 36415; 80053; 80061; 80178; 82607; 84439; 84443; 85025

== ENCOUNTER → 2023-12-22 | Outpatient (CLI) | payer MEDICARE, SELFPAY ==
--- NOTE | 2023-12-22 13:00 | MRI_ITS ---
STUDY: MRI BRAIN WITHOUT CONTRAST REASON FOR EXAM: Female, 58 years old. NEURO COGNATIVE DISORDER TECHNIQUE: Standardized multiplanar fat and water weighted pulse sequences were obtained. COMPARISON: 1223 FINDINGS: There is mild cerebral atrophy with widening of the extra-axial spaces and ventricular dilatation. There are a limited number of small white matter hyperintensities, distributed throughout the deep white matter tracts of the cerebral hemispheres, consistent with mild chronic white matter ischemic changes. There is no evidence for recent intracranial ischemia or other cause of cytotoxic edema on diffusion weighted imaging (DWI). Normal T2* images of the brain without demonstrated susceptibility artifact. There is no demonstrated hemosiderin stain. Thin section coronal T2-weighted images through the temporal lobes demonstrate bilateral hippocampal atrophy which can be seen in cognitive decline from Alzheimer''s disease. Normal bilateral basal ganglia. Normal thalami. There is no extra-axial fluid accumulation. Normal flow voids within the major intracranial circulation suggesting patency by spin echo criteria. Normal sella turcica, pituitary gland, infundibular stalk, optic chiasm and hypothalamus. Normal tectal plate and pineal gland. Normal midbrain, chidi and medulla. Normal cerebellum. Normal basal cisterns. Normal bilateral temporal bones. Normal bilateral internal auditory canals. No demonstrated orbital abnormality, within the constraints of a routine brain study. Normal visualized paranasal sinuses. Normal calvarium and skull base. Normal visualized soft tissue structures. Normal visualized upper cervical spine. MRI/Brain without Contrast IMPRESSION: Involutional changes of the brain, as described above. No acute infarct. Electronically Signed: Nahum Rao MD at 11:51 EDT ,
== END | disposition home or self-care (01) ==
PROVIDERS: PCP Internal Medicine; Referring Provider Psychiatry & Neurology Neurology; Visit Provider Psychiatry & Neurology Neurology
DX: G31.84 Mild cognitive impairment of uncertain or unknown etiology (principal)
CPT/HCPCS: 70551

== ENCOUNTER → 2023-12-23 | Outpatient (CLI) | payer MEDICARE, SELFPAY ==
[2023-12-29 16:11] LABS: HPV APTIMA, High Risk Negative (Negative)
== END | disposition home or self-care (01) ==
LOC: LABSPEC 12:56
PROVIDERS: PCP Internal Medicine; Referring Provider Nurse Practitioner Family; Visit Provider Nurse Practitioner Family
DX: Z12.4 Encounter for screening for malignant neoplasm of cervix (principal)
CPT/HCPCS: 87624; 88175; G0145

== ENCOUNTER → 2023-12-29 | Outpatient (CLI) | payer MEDICARE, SELFPAY ==
--- NOTE | 2023-12-29 10:50 | BI_ITS ---
MAMMOGRAPHY - BILATERAL SCREENING REASON FOR EXAM: Female, 58 years old. Routine annual screening examination. PERTINENT HISTORY: Personal history of breast cancer. Prior right lumpectomy with radiation therapy. TECHNIQUE: Digital bilateral breast aline (3D mammographic acquisition) in the CC and MLO projections. 2-D mediolateral oblique (MLO) and craniocaudad (CC) views of both breasts were obtained. CAD: Full Field Digital Mammography with Computer Added Detection was performed. COMPARISON: Comparison is made with prior examination August 12, 2022 and August 05, 2021. FINDINGS: Breast Composition: There are scattered areas of fibroglandular density. There are no dominant masses or suspicious calcifications. Once again, the patient is status post lumpectomy in the upper the lateral aspect of the right breast with resultant deformity of the breast and post surgical dystrophic calcification. Stable small benign-appearing axillary lymph nodes. No other significant abnormalities are identified. There has been no significant change since the prior study. BI/SCRN MAMM (CAD)W/ALINE BILAT IMPRESSION: Stable bilateral screening mammogram. Yearly follow-up mammogram recommended. (A) ASSESSMENT CATEGORY: BIRADS Category 2: Benign. A letter regarding these results will be sent to the patient by the facility within 30 days. Approximately 10% of breast cancers are not detected by mammography. A normal mammogram should not delay biopsy of a clinically suspicious abnormality. [id number] Electronically Signed: Romeo English MD at 12:25 EDT ,
== END | disposition home or self-care (01) ==
LOC: OPBI 10:50
PROVIDERS: PCP Internal Medicine; Referring Provider Internal Medicine; Visit Provider Internal Medicine
DX: Z12.31 Encounter for screening mammogram for malignant neoplasm of breast (principal); Z85.3 Personal history of malignant neoplasm of breast
CPT/HCPCS: 77063; 77067

== ENCOUNTER → 2024-04-13 | Outpatient (CLI) | payer MEDICARE, SELFPAY ==
[2024-04-13 16:13] LABS: Absolute Lymphocyte Count 2.14 X10^3/uL (0.83-4.51); Absolute Neutrophil Count 5.8 X10^3/uL (2.0-7.7); Basophil# 0.04 X10^3/uL; Basophil% 0.5 % (0-1); Eosinophil# 0.09 X10^3/uL; Hematocrit 42.7 % (37-47); Hemoglobin 14.1 g/dL (12.0-15.0); Lymphocyte # 2.14 X10^3/ul (0.83-4.51); Lymphocyte % 24.9 % (19-41); Mean Corpuscular Hgb 30.6 pg (27.0-32.0); Mean Corpuscular Volume 92.6 fL (81-99); Mean Platelet Vol. 9.8 fl (6.2-12.0); Monocyte% 5.8 % (0-10); NRBC Flagged by Analyzer 0 % (0-5); Neutrophil % 67.6 % (47-70); Platelet Count 213 K/mm3 (150-450); RBC Distribution Width CV 11.9 % (11.6-14.6); Red Blood Count 4.61 M/mm3 (4.2-5.4); White Blood Count 8.6 K/mm3 (4.4-11.0)
[2024-04-13 16:55] LABS: Hemoglobin A1c 5.3 % (3.8-5.6)
[2024-04-13 16:56] LABS: ALB/GLOB Ratio 1.1 RATIO (0.9-2.4); AST(SGOT) 16 U/L (15-37); Alanine Aminotransfer ALT/SGPT 16 U/L (13-56); Alkaline Phosphatase 58 U/L (45-117); Anion Gap 4 (5-15); BUN 11 mg/dL (7-18); BUN/Creat Ratio 13.3 RATIO (10-20); Calcium,Total 10.3 mg/dL (8.5-10.1); Chloride 105 mmol/L (98-107); Cholesterol 185 mg/dL (200); Creatinine, Serum 0.83 mg/dL (0.55-1.02); EST Glomerular Filtration Rate 75 mL/min (>60); Est Glom Filt Rate - Afr Amer 91 mL/min (>60); Globulin 3.8 g/dL (2.2-4.2); Glucose 132 mg/dL (74-106); High Density Lipoprotein 74 mg/dL; Potassium 3.7 mmol/L (3.5-5.1); Protein, Total 7.8 g/dL (6.4-8.2); Sodium Level 140 mmol/L (136-145); T4 Free Direct 0.91 ng/dL (0.76-1.46); Triglycerides 157 mg/dL; Very Low Density Lipoprotein 31 mg/dL (5-40)
[2024-04-15 07:09] LABS: PROLACTIN 67.7 ng/mL (3.6-25.2)
== END | disposition home or self-care (01) ==
LOC: BIMLAB 14:27
PROVIDERS: PCP Internal Medicine; Referring Provider Internal Medicine; Visit Provider Internal Medicine
DX: Z79.899 Other long term (current) drug therapy (principal)
CPT/HCPCS: 36415; 80053; 80061; 80178; 83036; 84146; 84439; 84443; 85025

== ENCOUNTER → 2024-12-05 | Outpatient (CLI) | payer OTHER, SELFPAY ==
[2024-12-05 09:48] LABS: Hematocrit 42.5 % (37-47); Hemoglobin 14.1 g/dL (12.0-15.0); Immature Granulocytes Count 0.030 X10^3/uL (0.0-0.0); Mean Corp Hgb Conc 33.2 g/dL (32-36); Mean Corpuscular Volume 92.6 fL (81-99); Mean Platelet Vol. 9.6 fl (6.2-12.0); NRBC Flagged by Analyzer 0 % (0-5); Platelet Count 213 K/mm3 (150-450); RBC Distribution Width CV 12.0 % (11.6-14.6); RBC Distribution Width SD 41.1 fl (35.1-43.9); Red Blood Count 4.59 M/mm3 (4.2-5.4); White Blood Count 8.8 K/mm3 (4.4-11.0)
[2024-12-05 10:25] LABS: Lithium 0.52 mmol/L (0.60-1.20)
[2024-12-05 10:29] LABS: AST(SGOT) 23 U/L (<=31); Alanine Aminotransfer ALT/SGPT 16 U/L (<=34); Albumin, Serum 4.3 g/dL (3.4-4.8); Alkaline Phosphatase 62 U/L (35-104); Anion Gap 11 (5-15); BUN 8 mg/dL (4-19); BUN/Creat Ratio 9.2 RATIO (10-20); Calcium,Total 9.5 mg/dL (7.6-11.0); Carbon Dioxide 24.3 mmol/L (21.0-32.0); Chloride 106 mmol/L (98-108); Globulin 2.9 g/dL (2.2-4.2); Glucose 107 mg/dL (70-99); Potassium 4.2 mmol/L (3.3-5.1)
--- OUTSIDE RECORDS SUMMARY | 2024-12-05 19:14 | XMS RPT_ITS | CCD ---
Author Organization [facility] Care Team Providers Care Strategic Planning Specialist Name Role Phone Oleghe, Efewongbe Attending Unavailable Oleghe, Efewongbe Referring Unavailable Oleghe, Efewongbe Primary Care Unavailable Oleghe, Efewongbe Attending Unavailable Oleghe, Efewongbe Referring Unavailable Oleghe, Efewongbe Primary Care Unavailable Oleghe, Efewongbe Attending Unavailable William, Mahin Chi Primary Care Unavailable William, Mahin Chi Referring Unavailable PAULIE PRAPELON Attending Unavailable William, Mahin Chi Primary Care Unavailable Oleghe, Efewongbe Attending Unavailable Oleghe, Efewongbe Referring Unavailable Oleghe, Efewongbe Primary Care Unavailable PELON HUGGINS Attending Unavailable William, Mahin Chi Primary Care Unavailable HowieAryan Attending Unavailable Oleghe, Efewongbe Primary Care Unavailable Oleghe, Efewongbe Referring Unavailable Oleghe, Efewongbe Primary Care Unavailable Corie Sanchez Attending Unavailable Oleghe, Efewongbe Primary Care Unavailable Corie Sanchez Attending Unavailable BarkmanCorie Referring Unavailable Oleghe, Efewongbe Referring Unavailable Oleghe, Efewongbe Primary Care Unavailable Oleghe, Efewongbe Attending Unavailable Aryan Denise Attending Unavailable Aryan Denise Referring Unavailable Oleghe, Efewongbe Primary Care Unavailable Medications Current Medications Medication Drug Class(es) Dates Sig (Normalized) Sig (Original) benztropine mesylate 1 mg oral tablet (10 sources) Anticholinergic, Antihistamine Start: 12-19-2022 take 1 mg by mouth twice daily Benztropine Active 1 MG PO TWICE A DAY December 18, 2022 11:00pm lithium carbonate 300 mg oral capsule (20 sources) Start: 12-19-2022 take 150 mg by mouth once daily [place] Carbonate Active 150 MG PO DAILY December 18, 2022 11:00pm Start: 12-19-2022 take 300 mg by mouth once myriam y [place] Carbonate Active 300 MG PO DAILY December 18, 2022 11:00pm meclizine hydrochloride 25 mg chewable tablet (10 sources) Antiemetic Start: 12-19-2022 take 1 tablet by mouth four times daily Meclizine (Antivert) 25 mg tablet,chewable Active 25 MG PO 4 TIMES DAILY December 18, 2022 11:00pm risperiDONE 3 mg oral tablet (10 sources) Atypical Antipsychotic Start: 12-19-2022 take 1.5 mg by mouth once daily Risperidone (Risperdal) 3 mg tablet Active 1.5 MG PO DAILY December 18, 2022 11:00pm Problems Active Problems Problem Classification Problem Date Documented Date Episodic/Chronic Conditions associated with dizziness or vertigo (10 sources) Dizziness; Translations: [Dizziness and giddiness] 12-19-2022 Episodic Delirium, dementia, and amnestic and other cognitive disorders (1 source) Unspecified dementia without behavioral disturbance; Translations: [Unspecified dementia, unspecified severity, without behavioral disturbance, psychotic disturbance, mood disturbance, and anxiety] Onset: 10-13-2023 Chronic Mood disorders (11 sources) Bipolar disorder; Translations: [Bipolar disorder, unspecified] Onset: 04-13-2024 12-19-2022 Chronic Other aftercare (1 source) Other snf (current) drug therapy; Translations: [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] Onset: 05-15-2024 Episodic Other hereditary and degenerative nervous system conditions (1 source) Mild cognitive impairment, so stated; Translations: [Mild cognitive impairment of uncertain or unknown etiology] Onset: 01-17-2024 Chronic Schizophrenia and other psychotic disorders (11 sources) Schizoaffective disorder; Translations: [Schizoaffective disorder, unspecified] Onset: 04-13-2024 12-19-2022 Chronic Past or Other Problems Problem Classification Problem Date Documented Da te Episodic/Chronic Other screening for suspected conditions (not mental disorders or infectious disease) (3 sources) Encounter for screening mammogram for malignant neoplasm of breast; Translations: [Encounter for screening for malignant neoplasm of cervix] Onset: 10-13-2023 Episodic Results Test Name Value Interpretation Reference Range Facility PROLACTIN 4465on 04-15-2024 PROLACTIN 67.7 ng/mL High 3.6-25.2 [facility] Comment on above: Result Comment: Perf ormed at: [facility] [address] [id number] [employer] Assembly: Sebas Garza PhD, Phone: [phone] Performed By: #### L 506.0400, L3100.5400, L500.4100, L501.9520, L501.9985, L500.4050 ####[facility] [address] [place], [address] CBC W/Diff, Automatedon 12-0 5-4 Absolute Lymph 2.14 X10 3/uL Normal 0.83-4.51 [facility] Comment on above: Performed By: #### L 100.0100, L501.9060 ####[facility] [address] [place], [address] Absolute Neut 5.8 X10 3/uL Normal 2.0-7.7 [facility] Comment on above: Performed By: #### L 100.0100, L501.9060 ####[facility] [address] [place], [address] Basophils/100 WBC (Bld) 0.5 % Normal 0-1 [facility] Comment on above: Performed By: #### L 100.0100, L501.9060 ####[facility] [address] [place], [address] Eosinophils/100 WBC (Bld) 1.0 % Normal 0-5 [facility] Comment on above: Performed By: #### L 100.0100, L501.9060 ####[facility] [address] [place], [address] Erythrocyte distribution width (RBC) [Ratio] 11.9 % Normal 11.6-14.6 [facility] Comment on above: Performed By: #### L 100.0100, L501.9060 ####[facility] [address] [place], [address] Hematocrit (Bld) [Volume fraction] 42.7 % Normal 37-47 [facility] Comment on above: Performed By: #### L 100.0100, L501.9060 ####[facility] [address] [place], [address] Hemoglobin (Bld) [Mass/Vol] 14.1 g/dL Normal 12.0-15.0 [facility] Comment on above: Performed By: #### L 100.0100, L501.9060 ####[facility] [address] [place], [address] IG% 0.200 Normal 0.0-0.9 [facility] Comment on above: Result Comment: IG% - Immature Granulocytes (promyelocytes, myelocytes and metamyelocytes) > 1% indicates that a LEFT SHIFT is Present. Performed By: #### L 100.0100, L501.9060 ####[facility] [address] [place], [address] Lymphocytes/100 WBC (Bld) 24.9 % Normal 19-41 [facility] Comment on above: Performed By: #### L 100.0100, L501.9060 ####[facility] [address] [place], [address] MCH (RBC) [Entitic mass] 30.6 pg Normal 27.0-32.0 [facility] Comment on above: Performed By: #### L 100.0100, L501.9060 ####[facility] [address] [place], [address] MCHC (RBC) [Mass/Vol] 33.0 g/dL Normal 32-36 [facility] Comment on above: Performed By: #### L 100.0100, L501.9060 ####[facility] [address] [place], [address] MCV (RBC) [Entitic vol] 92.6 fL Normal 81-99 [facility] Comment on above: Performed By: #### L 100.0100, L501.9060 ####[facility] [address] [place], [address] Monocytes/100 WBC (Bld) 5.8 % Normal 0-10 [facility] Comment on above: Performed By: #### L 100.0100, L501.9060 ####[facility] [address] [place], [address] Neutrophils/100 WBC (Bld) 67.6 % Normal 47-70 [facility] Comment on above: Performed By: #### L 100.0100, L501.9060 ####[facility] [address] [place], [address] Nucleated RBC (Bld) [#/Vol] 0 10*3/uL Normal 0-5 [facility] Comment on above: Performed By: #### L 100.0100, L501.9060 ####[facility] [address] [place], [address] Platelet mean volume (Bld) [Entitic vol] 9.8 fL Normal 6.2-12.0 [facility] Comment on above: Performed By: #### L 100.0100, L501.9060 ####[facility] [address] [place], [address] Platelets (Bld) [#/Vol] 213 10*3/uL Normal 150-450 [facility] Comment on above: Performed By: #### L 100.0100, L501.9060 ####[facility] [address] [place], [address] RBC (Bld) [#/Vol] 4.61 10*6/uL Normal 4.2-5.4 [facility] Comment on above: Performed By: #### L 100.0100, L501.9060 ####[facility] [address] [place], [address] RDW SD 40.0 fl Normal 35.1-43.9 [facility] Comment on above: Performed By: #### L 100.0100, L501.9060 ####[facility] [address] [place], [address] WBC (Bld) [#/Vol] 8.6 10*3/uL Normal 4.4-11.0 [facility] Comment on above: Performed By: #### L 100.0100, L501.9060 ####[facility] [address] [place], [address] Comprehensive Metabolic Prof ilon 04-13-2024 Albumin [Mass/Vol] 4.0 g/dL Normal 3.2-5.0 [facility] Comment on above: Performed By: #### L 506.0400, L3100.5400, L500.4100, L501.9520, L501.9985, L500.4050 ####[facility] [address] [place], [address] Albumin/Globulin [Mass ratio] 1.1 {ratio} Normal 0.9-2.4 [facility] Comment on above: Performed By: #### L 506.0400, L3100.5400, L500.4100, L501.9520, L501.9985, L500.4050 ####[facility] [address] [place], [address] ALK P 58 U/L Normal 45-117 [facility] Comment on above: Performed By: #### L 506.0400, L3100.5400, L500.4100, L501.9520, L501.9985, L500.4050 ####[facility] [address] [place], [address] ALT [Catalytic activity/Vol] 16 U/L Normal 13-56 [facility] Comment on above: Performed By: #### L 506.0400, L3100.5400, L500.4100, L501.9520, L501.9985, L500.4050 ####[facility] [address] [place], [address] AST [Catalytic activity/Vol] 16 U/L Normal 15-37 [facility] Comment on above: Performed By: #### L 506.0400, L3100.5400, L500.4100, L501.9520, L501.9985, L500.4050 ####[facility] [address] [place], [address] Bilirubin [Mass/Vol] 0.40 mg/dL Normal 0.20-1.00 [facility] Comment on above: Result Comment: For patients on eltrombopag therapy, use of Dimension [place] TBIL is not recommended. Performed By: #### L 506.0400, L3100.5400, L500.4100, L501.9520, L501.9985, L500.4050 ####[facility] [address] [place], [address] BUN/CRE 13.3 RATIO Normal 10-20 [facility] Comment on above: Performed By: #### L 506.0400, L3100.5400, L500.4100, L501.9520, L501.9985, L500.4050 ####[facility] [address] [place], [address] CA,Total 10.3 mg/dL High 8.5-10.1 [facility] Comment on above: Performed By: #### L 506.0400, L3100.5400, L500.4100, L501.9520, L501.9985, L500.4050 ####[facility] [address] [place], [address] Chloride [Moles/Vol] 105 mmol/L Normal 98-107 [facility] Comment on above: Performed By: #### L 506.0400, L3100.5400, L500.4100, L501.9520, L501.9985, L500.4050 ####[facility] [address] [place], [address] CO2 [Moles/Vol] 31.0 mmol/L Normal 21.0-32.0 [facility] Comment on above: Performed By: #### L 506.0400, L3100.5400, L500.4100, L501.9520, L501.9985, L500.4050 ####[facility] [address] [place], [address] Creatinine [Mass/Vol] 0.83 mg/dL Normal 0.55-1.02 [facility] Comment on above: Result Comment: The validity of the calculated GFR GFRAA in patients over 70 years has not been determined. Clinical correlation is essential. Performed By: #### L 506.0400, L3100.5400, L500.4100, L501.9520, L501.9985, L500.4050 ####[facility] [address] [place], [address] EST GFR - AA 91 mL/min Normal >60 [facility] Comment on above: Result Comment: Afri can [place] GFR Calc Performed By: #### L 506.0400, L3100.5400, L500.4100, L501.9520, L501.9985, L500.4050 ####[facility] [address] [place], [address] GAP 4 Low 5-15 [facility] Comment on above: Performed By: #### L 506.0400, L3100.5400, L500.4100, L501.9520, L501.9985, L500.4050 ####[facility] [address] [place], [address] GFR/1.73 sq M.predicted among non-blacks MDRD (S/P/Bld) [Vol rate/Area] 75 mL/min/{1.73_m2} Normal >60 [facility] Comment on above: Result Comment: Non- GFR Calc Performed By: #### L 506.0400, L3100.5400, L500.4100, L501.9520, L501.9985, L500.4050 ####[facility] [address] [place], [address] Globulin (S) [Mass/Vol] 3.8 g/dL Normal 2.2-4.2 [facility] Comment on above: Performed By: #### L 506.0400, L3100.5400, L500.4100, L501.9520, L501.9985, L500.4050 ####[facility] [address] [place], [address] Glucose [Mass/Vol] 132 mg/dL High 74-106 [facility] Comment on above: Result Comment: Fast ing Glucose result greater than or equal to 126 mg/dL suggests DIABETES MELLITUS per A.D.A. criteria. Performed By: #### L 506.0400, L3100.5400, L500.4100, L501.9520, L501.9985, L500.4050 ####[facility] [address] [place], [address] Potassium [Moles/Vol] 3.7 mmol/L Normal 3.5-5.1 [facility] Comment on above: Performed By: #### L 506.0400, L3100.5400, L500.4100, L501.9520, L501.9985, L500.4050 ####[facility] [address] [place], [address] Sodium [Moles/Vol] 140 mmol/L Normal 136-145 [facility] Comment on above: Performed By: #### L 506.0400, L3100.5400, L500.4100, L501.9520, L501.9985, L500.4050 ####[facility] [address] [place], [address] T PROT 7.8 g/dL Normal 6.4-8.2 [facility] Comment on above: Performed By: #### L 506.0400, L3100.5400, L500.4100, L501.9520, L501.9985, L500.4050 ####[facility] [address] [place], [address] Urea nitrogen [Mass/Vol] 11 mg/dL Normal 7-18 [facility] Comment on above: Performed By: #### L 506.0400, L3100.5400, L500.4100, L501.9520, L501.9985, L500.4050 ####[facility] [address] [place], [address] Hemoglobin A1con 04-13-2024 HbA1c (Bld) [Mass fraction] 5.3 % Normal 3.8-5.6 [facility] Comment on above: Result Comment: Norm al < 5.7 % Prediabetic 5.7 - 6.4 % Diabetic >or= 6.5 % Please note range changes. Performed By: #### L 506.0400, L3100.5400, L500.4100, L501.9520, L501.9985, L500.4050 ####[facility] [address] [place], [address] Internal Medicine Office Vis ana luisa 04-13-2024 Internal Medicine Office Visit [facility] [address] [place], [place] [address] OFFICE VISIT Date of Service: 04/13/24 MR#: [id number] Acct: [id number] Name: ANICETO BERNAL Rep #: [id number] : 1965 Provider: Dr. 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 Accompanied by: Self Is patient in pain?: No Allergies No Known Allergies Allergy (Verified 04/13/24 13:56) Medications ???Medication ???Instructions ???Recorded ???Confirmed ???Type lithium carbonate 150 mg capsule 300 mg PO DAILY 12/19/22 04/13/24 History lithium carbonate 300 mg capsule 150 mg PO DAILY 12/19/22 04/13/24 History risperidone 3 mg tablet (Risperdal) 1.5 mg PO DAILY 12/19/22 04/13/24 History benztropine 1 mg tablet 1 mg PO TID 10/13/23 04/13/24 History naproxen sodium 220 mg capsule 220 mg PO Q12H PRN 10/13/23 04/13/24 History (Aleve) PFSH Medical History History of breast cancer Health care maintenance Dementia Vision problem Seizures Liver disease Hormone deficiency Hepatitis Head ache Emotional problems Breast cancer Breast lump UTI (urinary tract infection) Bone fracture Bipolar 1 disorder Schizo affective schizophrenia Surgical History H/O bilateral salpingectomy Hx of partial mastectomy Social History adopted: Yes household members: spouse and none housing: house current occupational status: unemployed Smoking Status: Former smoker alcohol intake: never substance use type: does not use what type of physical activity do you participate in: walking and yoga frequency: 3-4 times per week seatbelt use: always do you feel safe at home: Yes Female Reproductive History Menstrual Date of menopause: 05/10/09 HPI HPI Chief Complaint: 6M F/U Details: ANICETO BERNAL, is a 58 F who presents to the office today for follow-up. No acute concerns at this time. Since her last visit, established with neurology had testing done which was suggestive of dementia. She has tried Namenda and donepezil and not found neither beneficial. New Alzheimer's medications discussed however she was not open to this. Other chronic medical conditions are stable. Follows up closely on the counseling center and is taking her medication as prescribed. ROS Const Constitutional: No body ache, chills, excessive sweating, fatigue, fever(s), frequent falls, headache(s), snoring, weakness or change in appetite Eyes Eyes: No blurry vision, change in vision, floaters, visual disturbances, eye pain or Light sensitivity ENT ENT: No abnormal hearing, ear or mastoid pain, tinnitus, balance problems, nosebleed/epistaxis, nasal congestion, headache(s), neck pain or sore throat Resp Respiratory: No cough, excessive phlegm production, pain on inspiration, shortness of breath, snoring or wheezing Cardio Cardiology: No chest pain at rest, chest pain with exertion, excessive sweating, dyspnea on exertion, lightheadedness, orthopnea or palpitations Gastro GI: No abdominal pain, change in bowel habits, constipation, cramping, diarrhea, nausea/dyspepsia or vomiting Genitourinary-Female: No burning urination, painful urination, urinary incontinence, urinary frequency, suprapubic fullness or side pain Musc Musculoskeletal: No abnormal gait, joint pain, back pain, limited range of motion, muscle cramps, muscle weakness, neck pain or numbness Skin Skin: No dry skin, redness, excessive hair growth, yellowing of the eye, lesions, itchy eyes, rash or wounds Neuro Neurology: No abnormal gait, abnormal hearing, behavioral changes, unsteady gait/balance, weakness, frequent falls, headache(s), memory loss, numbness or visual disturbances Psych Psychiatric: No anxiety, No behavioral changes, No change in appetite, No depression, No memory loss and No Thoughts of harming yourself/Others Endo Endocrine: No cold intolerance, excessive sweating, fatigue, flushing, heat intolerance, increased thirst/drinking or increased hunger Aller/Imm Allergy/Immunologic: No itchy eyes, seasonal allergy symptoms, hives or wheezing Betito/Lymp Hematologic/Lymphatic: No easy bleeding or easy bruising Exam Const General: cooperative, comfortable and no acute distress Dave (more content not included)... Normal [facility] Lipid Profileon 04-13-2024 Cholesterol [Mass/Vol] 185 mg/dL Normal 200 [facility] Comment on above: Result Comment: <200 mg/dL Desirable 200-240 mg/dL Borderline >240 mg/dL High Risk Performed By: #### L 506.0400, L3100.5400, L500.4100, L501.9520, L501.9985, L500.4050 ####[facility] [address] [place], [address] Cholesterol in HDL [Mass/Vol] 74 mg/dL Normal [facility] Comment on above: Result Comment: The drugs N-Acetylcysteine and Metamizole may falsely depress this assay. Reference Range HDL <40 mg/dL Low HDL Cholesterol HDL >or= 60 mg/dL High HDL Cholesterol Performed By: #### L 506.0400, L3100.5400, L500.4100, L501.9520, L501.9985, L500.4050 ####[facility] [address] [place], [address] Cholesterol in LDL [Mass/Vol] 80 mg/dL Normal 0-130 [facility] Comment on above: Performed By: #### L 506.0400, L3100.5400, L500.4100, L501.9520, L501.9985, L500.4050 ####[facility] [address] [place], [address] Cholesterol in VLDL [Mass/Vol] 31 mg/dL Normal 5-40 [facility] Comment on above: Performed By: #### L 506.0400, L3100.5400, L500.4100, L501.9520, L501.9985, L500.4050 ####[facility] [address] [place], [address] Triglyceride [Mass/Vol] 157 mg/dL Normal [facility] Comment on above: Result Comment: The drugs N-Acetylcysteine and Metamizole may falsely depress this assay. Serum Triglycerides Reference Interval Normal <150 mg/dL Borderline high 150 - 199 mg/dL High 200 - 499 mg/dL Very High > or = 500 mg/dL Performed By: #### L 506.0400, L3100.5400, L500.4100, L501.9520, L501.9985, L500.4050 ####[facility] [address] [place], [address] Lithiumon 04-13-2024 LI 0.60 mmol/L Normal 0.60-1.20 [facility] Comment on above: Order Comment: Performed By: #### L 100.0100, L501.9060 ####[facility] [address] [place], [address] T4 Free Directon 04-13-2024 T4 FREE DIRECT 0.91 ng/dL Normal 0.76-1.46 [facility] Comment on above: Performed By: #### L 506.0400, L3100.5400, L500.4100, L501.9520, L501.9985, L500.4050 ####[facility] [address] [place], [address] Thyroid Stim Hormone (TSH)on 04-13-2024 TSH 1.500 uIU/mL Normal 0.358-3.740 [facility] Comment on above: Performed By: #### L 506.0400, L3100.5400, L500.4100, L501.9520, L501.9985, L500.4050 ####[facility] [address] [place], [address] PAP IG HPV APTIMA 16/18,45on 12-29-2023 ADEQ Comment Normal . [facility] Comment on above: Order Comment: Speci men Comment: [id number] Comment: Source.............Cervix;EndocervixSpecimen Comment: Other..............Post MenopausalSpecimen Comment: No. of containers..01 ThinPrep Vial Result Comment: Sati sfactory for evaluation. Endocervical and/or squamous metaplastic cells (endocervical component) are present. Areas of partially obscuring inflammatory exudate are present. Performed By: #### L 7400.0280 ####[facility] [address] [place], [address] COMM . Normal . [facility] Comment on above: Order Comment: Speci men Comment: [id number] Comment: Source.............Cervix;EndocervixSpecimen Comment: Other..............Post MenopausalSpecimen Comment: No. of containers..01 ThinPrep Vial Performed By: #### L 7400.0280 ####[facility] [address] [place], [address] COMMENT Comment Normal . [facility] Comment on above: Order Comment: Speci men Comment: [id number] Comment: Source.............Cervix;EndocervixSpecimen Comment: Other..............Post MenopausalSpecimen Comment: No. of containers..01 ThinPrep Vial Result Comment: This liquid based ThinPrep(R) pap test was screened with the use of an image guided system. Performed By: #### L 7400.0280 ####[facility] [address] [place], [address] DIAG Comment Normal . [facility] Comment on above: Order Comment: Speci men Comment: [id number] Comment: Source.............Cervix;EndocervixSpecimen Comment: Other..............Post MenopausalSpecimen Comment: No. of containers..01 ThinPrep Vial Result Comment: NEGA TIVE FOR INTRAEPITHELIAL LESION OR MALIGNANCY. CELLULAR CHANGES ASSOCIATED WITH INFLAMMATION ARE PRESENT. Performed By: #### L 7400.0280 ####[facility] [id number] [place], [place], [address] HPV APTIMA, HR Negative Normal Negative [facility] Comment on above: Order Comment: Speci men Comment: [id number] Comment: Source.............Cervix;EndocervixSpecimen Comment: Other..............Post MenopausalSpecimen Comment: No. of containers..01 ThinPrep Vial Result Comment: This nucleic acid amplification test detects fourteen high- risk HPV types (16,18,31,33,35,39,45,51,52,56,58,59,66,68) without differentiation. Performed By: #### L 7400.0280 ####[facility] [id number] [place], [place], [id number] HPV Sofia Rfx Comment Normal . [facility] Comment on above: Order Comment: Speci men Comment: [id number] Comment: Source.............Cervix;EndocervixSpecimen Comment: Other..............Post MenopausalSpecimen Comment: No. of containers..01 ThinPrep Vial Result Comment: Crit eria not met, HPV Genotype not performed. Performed at: [address] [id number] [employer]: Maria Guadalupe Gaona MD, Phone: [phone] Performed at: =[address] [id number] [employer]: Maria Guadalupe Gaona MD, Phone: [phone] Performed By: #### L 7400.0280 ####[facility] [id number] [place], [place], [id number] PAPSMR Comment Normal . [facility] Comment on above: Order Comment: Speci men Comment: [id number] Comment: Source.............Cervix;EndocervixSpecimen Comment: Other..............Post MenopausalSpecimen Comment: No. of containers..01 ThinPrep Vial Result Comment: The Pap smear is a screening test designed to aid in the detection of premalignant and malignant conditions of the uterine cervix. It is not a diagnostic procedure and should not be used as the sole means of detecting cervical cancer. Both false-positive and false-negative reports do occur. Performed By: #### L 7400.0280 ####[facility] [address] [facility] [place], [place], [id number] PERFORM Comment Normal . [facility] Comment on above: Order Comment: Speci men Comment: [id number] Comment: Source.............Cervix;EndocervixSpecimen Comment: Other..............Post MenopausalSpecimen Comment: No. of containers..01 ThinPrep Vial Result Comment: Pat Villafana Dean Of Graduate Studies (ASCP) Performed By: #### L 7400.0280 ####[facility] [id number] [facility] [place], [place], [id number] SCRN MAMM (CAD)W/ALINE Kevin n 12-29-2023 SCRN MAMM (CAD)W/ALINE IVON [facility] Imaging Services [address] [place], [place] [address] SCRN MAMM (CAD)W/ALINEBurton [place] MR#: [id number] Acct: [id number] Name: ANICETO BERNAL Rep #: [id number] : 1965 F 58 From: Romeo higgins MD PCP: Dr. Adolfo Bustillos MD Status: [facility] Study: SCRN MAMM (CAD)W/ALINE BILAT Date of Exam: 12/09 06/02 Exam# [id number] Ordering Dr: Adolfo Bustillos MD [id number] MAMMOGRAPHY - BILATERAL SCREENING REASON FOR EXAM: Female, 58 years old. Routine annual screening examination. PERTINENT HISTORY: Personal history of breast cancer. Prior right lumpectomy with radiation therapy. TECHNIQUE: Digital bilateral breast aline (3D mammographic acquisition) in the CC and MLO projections. 2-D mediolateral oblique (MLO) and craniocaudad (CC) views of both breasts were obtained. CAD: Full Field Digital Mammography with Computer Added Detection was performed. COMPARISON: Comparison is made with prior examination August 12, 2022 and August 05, 2021. FINDINGS: Breast Composition: There are scattered areas of fibroglandular density. There are no dominant masses or suspicious calcifications. Once again, the patient is status post lumpectomy in the upper the lateral aspect of the right breast with resultant deformity of the breast and post surgical dystrophic calcification. Stable small benign-appearing axillary lymph nodes. No other significant abnormalities are identified. There has been no significant change since the prior study. BI/SCRN MAMM (CAD)W/ALINE BILAT IMPRESSION: Stable bilateral screening mammogram. Yearly follow-up mammogram recommended. (A) ASSESSMENT CATEGORY: BIRADS Category 2: Benign. A letter regarding these results will be sent to the patient by the facility within 30 days. Approximately 10% of breast cancers are not detected by mammography. A normal mammogram should not delay biopsy of a clinically suspicious abnormality. [id number] Electronically Signed: Romeo English MD at 12:25 EDT Reading Location ID and State: [facility] / [place] , Service support , CC: Dr. 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 Machine Operator Office Visit Report [facility] [address] [facility], [address] [place] [address] OFFICE VISIT Date of Service: 12/23/23 MR#: [id number] Acct: [id number] Name: ANICETO BERNAL Rep #: [id number] : 1965 Provider: MARIKA Massey Age/Sex: 58/F Location: [facility] Status: Signed Intake Vital Signs 10/13/23 14:53 12/23/23 08:01 Height 5 ft 5 ft Weight: 143 lb 6 oz 139 lb BMI 28.0 27.1 BP 116/60 134/85 H Blood Pressure Location Lt brachial Position Sitting Respiration 16 Pulse 55 L Pulse Source Monitor Temp 98.0 F Pulse Oximetry (%) 98 Oxygen Delivery Method room air 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) Piano Regulator Inspector Required: No Is patient in pain?: No Allergies No Known Allergies Allergy (Verified 12/23/23 08:27) Medications ???Medication ???Instructions ???Recorded ???Confirmed ???Type lithium carbonate 150 mg capsule 300 mg PO DAILY 12/19/22 12/23/23 History lithium carbonate 300 mg capsule 150 mg PO DAILY 12/19/22 12/23/23 History risperidone 3 mg tablet (Risperdal) 1.5 mg PO DAILY 12/19/22 12/23/23 History benztropine 1 mg tablet 1 mg PO TID 10/13/23 12/23/23 History naproxen sodium 220 mg capsule 220 mg PO Q12H PRN 10/13/23 12/23/23 History (Aleve) Is last menstrual period known: No Post menopausal: Yes Date of menopause: 05/10/09 Patient : No : No Control Method: tubes and ovaries removed PFSH Medical History History of breast cancer Health care maintenance Dementia Vision problem Seizures Liver disease Hormone deficiency Hepatitis Head ache Emotional problems Breast cancer Breast lump UTI (urinary tract infection) Bone fracture Bipolar 1 disorder Schizo affective schizophrenia Surgical History (Updated 12/23/23 @ 08:35 by Lenore Lutz) H/O bilateral salpingectomy Hx of partial mastectomy Social History adopted: Yes household members: spouse and none housing: house current occupational status: unemployed Smoking Status: Former smoker alcohol intake: never substance use type: does not use what type of physical activity do you participate in: walking and yoga frequency: 3-4 times per week seatbelt use: always do you feel safe at home: Yes HPI Encounter for routine gynecological examination Details: ANICETO BERNAL is a 58 year old who presents for annual exam. She reports no issues or concerns today. Last PAP: in [place]; unsure; approx 4-5 years ago per patient. History of abnormal PAP: none Last mammogram: Right mastectomy; breast CA 2009. History of abnormal mammogram: 08/12/2022 Colon cancer screening: Approx 2020; outpatient specialty building. 5 year follow up recommended. Other preventative health care screenings: Primary Care Doctor: Dr. Bustillos. Female Reproductive History Questions: metorrhagia: No, sexually active: No, dyspareunia: No and PCB: No Date of menopause: 05/10/09 ROS Const Constitutional: Denies chills, fatigue, fever(s), headache(s) or weight loss Eyes Eyes: Denies change in vision ENT ENT: Denies dizziness Resp Resp: Denies cough GI GI: Denies abdominal pain, constipation or nausea : Denies difficulty voiding, dysuria, hematuria, pelvic pain, prolapse symptoms, urinary incontinence, vaginal discharge, vaginal dryness, vaginal odor or vaginal pruritus Skin Skin/Breast: Denies alopecia or rash Neuro Neuro: Denies dizziness Psych Psych: Denies anxiety or depression Endo Endo: Denies cold intolerance, excessive sweating or heat intolerance Exam Const General: cooperative, healthy appearing, comfortable, no acute distress, well groomed and well hydrated Nutritional Appearance: well nourished Orientation: alert, awake and oriented x3 HENMT Head: normal to inspection and normocephalic Ears: hearing grossly normal bilaterally and external ears normal Nose: external nose normal Face and sinus: normal facial exam Eyes General: appearance normal, both eyes and all related structures Neck Neck: normal visual inspection, full ROM and no lymphadenopathy Thyroid: thyroid normal Chest Chest palpation inspection: normal inspection of the chest Breast inspection: normal inspection of the breasts and normal inspection of the axillae Breast palpation: normal palpation of the breasts, normal palpation of the axillae and no axillary lymphadenopathy Resp Effort Inspection: normal respiratory effort, able to speak in complete sentences and symmetric chest movement GI Inspection: normal to inspection Palpation: soft and no hepatosplenomegaly General: bladder normal to palpation External Female Exam: normal external appearance and normal appearance of (more content not included)... Normal [facility] Brain without Contraston Brain without Contrast [facility] Imaging Services [address] [place] [id number] Brain without Contrast MR#: [id number] Acct: [id number] Name: ANICETO BERNAL Rep #: [id number] : 1965 F 58 From: Nahum Rao MD PCP: Dr. Adolfo Bustillos MD Status: [facility] Study: Brain without Contrast Date of Exam: 12/22/23 Exam# [id number] Ordering Dr: Aryan Denise MD [id number] STUDY: MRI BRAIN WITHOUT CONTRAST REASON FOR EXAM: Female, 58 years old. NEURO COGNATIVE DISORDER TECHNIQUE: Standardized multiplanar fat and water weighted pulse sequences were obtained. COMPARISON: 1223 FINDINGS: There is mild cerebral atrophy with widening of the extra-axial spaces and ventricular dilatation. There are a limited number of small white matter hyperintensities, distributed throughout the deep white matter tracts of the cerebral hemispheres, consistent with mild chronic white matter ischemic changes. There is no evidence for recent intracranial ischemia or other cause of cytotoxic edema on diffusion weighted imaging (DWI). Normal T2* images of the brain without demonstrated susceptibility artifact. There is no demonstrated hemosiderin stain. Thin section coronal T2-weighted images through the temporal lobes demonstrate bilateral hippocampal atrophy which can be seen in cognitive decline from Alzheimer''s disease. Normal bilateral basal ganglia. Normal thalami. There is no extra-axial fluid accumulation. Normal flow voids within the major intracranial circulation suggesting patency by spin echo criteria. Normal sella turcica, pituitary gland, infundibular stalk, optic chiasm and hypothalamus. Normal tectal plate and pineal gland. Normal midbrain, chidi and medulla. Normal cerebellum. Normal basal cisterns. Normal bilateral temporal bones. Normal bilateral internal auditory canals. No demonstrated orbital abnormality, within the constraints of a routine brain study. Normal visualized paranasal sinuses. Normal calvarium and skull base. Normal visualized soft tissue structures. Normal visualized upper cervical spine. MRI/Brain without Contrast IMPRESSION: Involutional changes of the brain, as described above. No acute infarct. Electronically Signed: Nahum Rao MD at 11:51 EDT , CC: Dr. Aryan Denise MD; Dr. Adolfo Bustillos MD Chemistry Laboratory Technician: Signed Normal [facility] CBC W/Diff, Automatedon 06-0 Absolute Lymph 2.63 X10 3/uL Normal 0.83-4.51 [facility] Comment on above: Performed By: #### L 501.9520, L500.4050, L503.0105, L500.4100, L100.0100, L506.0400, L501.9060 #### [facility] Laboratory [address] [place], [place], [address] Absolute Neut 6.2 X10 3/uL Normal 2.0-7.7 [facility] Comment on above: Performed By: #### L 501.9520, L500.4050, L503.0105, L500.4100, L100.0100, L506.0400, L501.9060 #### [facility] [address] [place] [place], [address] Basophils/100 WBC (Bld) 0.6 % Normal 0-1 [facility] Comment on above: Performed By: #### L 501.9520, L500.4050, L503.0105, L500.4100, L100.0100, L506.0400, L501.9060 #### [facility] [address] [place], [address] Eosinophils/100 WBC (Bld) 1.5 % Normal 0-5 [facility] Comment on above: Performed By: #### L 501.9520, L500.4050, L503.0105, L500.4100, L100.0100, L506.0400, L501.9060 #### [facility] [address] [place], [address] Erythrocyte distribution width (RBC) [Ratio] 11.9 % Normal 11.6-14.6 [facility] Comment on above: Performed By: #### L 501.9520, L500.4050, L503.0105, L500.4100, L100.0100, L506.0400, L501.9060 #### [facility] [address] [place], [address] Hematocrit (Bld) [Volume fraction] 41.8 % Normal 37-47 [facility] Comment on above: Performed By: #### L 501.9520, L500.4050, L503.0105, L500.4100, L100.0100, L506.0400, L501.9060 #### [facility] [address] [place], [address] Hemoglobin (Bld) [Mass/Vol] 13.4 g/dL Normal 12.0-15.0 [facility] Comment on above: Performed By: #### L 501.9520, L500.4050, L503.0105, L500.4100, L100.0100, L506.0400, L501.9060 #### [facility] [address] [place], [address] IG% 0.300 Normal 0.0-0.9 [facility] Comment on above: Result Comment: IG% - Immature Granulocytes (promyelocytes, myelocytes and metamyelocytes) > 1% indicates that a LEFT SHIFT is Present. Performed By: #### L 501.9520, L500.4050, L503.0105, L500.4100, L100.0100, L506.0400, L501.9060 #### [facility] [address] [facility] [place], [address] Lymphocytes/100 WBC (Bld) 27.3 % Normal 19-41 [facility] Comment on above: Performed By: #### L 501.9520, L500.4050, L503.0105, L500.4100, L100.0100, L506.0400, L501.9060 #### [facility] [address] [place], [address] MCH (RBC) [Entitic mass] 29.9 pg Normal 27.0-32.0 [facility] Comment on above: Performed By: #### L 501.9520, L500.4050, L503.0105, L500.4100, L100.0100, L506.0400, L501.9060 #### [facility] [address] [place], [address] MCHC (RBC) [Mass/Vol] 32.1 g/dL Normal 32-36 [facility] Comment on above: Performed By: #### L 501.9520, L500.4050, L503.0105, L500.4100, L100.0100, L506.0400, L501.9060 #### [facility] [address] [place], [address] MCV (RBC) [Entitic vol] 93.3 fL Normal 81-99 [facility] Comment on above: Performed By: #### L 501.9520, L500.4050, L503.0105, L500.4100, L100.0100, L506.0400, L501.9060 #### [facility] [address] [place], [address] Monocytes/100 WBC (Bld) 6.4 % Normal 0-10 [facility] Comment on above: Performed By: #### L 501.9520, L500.4050, L503.0105, L500.4100, L100.0100, L506.0400, L501.9060 #### [facility] [address] [place], [address] Neutrophils/100 WBC (Bld) 63.9 % Normal 47-70 [facility] Comment on above: Performed By: #### L 501.9520, L500.4050, L503.0105, L500.4100, L100.0100, L506.0400, L501.9060 #### [facility] [address] [place], [address] Nucleated RBC (Bld) [#/Vol] 0 10*3/uL Normal 0-5 [facility] Comment on above: Performed By: #### L 501.9520, L500.4050, L503.0105, L500.4100, L100.0100, L506.0400, L501.9060 #### [facility] [address] [place], [address] Platelet mean volume (Bld) [Entitic vol] 10.0 fL Normal 6.2-12.0 [facility] Comment on above: Performed By: #### L 501.9520, L500.4050, L503.0105, L500.4100, L100.0100, L506.0400, L501.9060 #### [facility] [address] [place], [address] Platelets (Bld) [#/Vol] 208 10*3/uL Normal 150-450 [facility] Comment on above: Performed By: #### L 501.9520, L500.4050, L503.0105, L500.4100, L100.0100, L506.0400, L501.9060 #### [facility] [address] [place], [address] RBC (Bld) [#/Vol] 4.48 10*6/uL Normal 4.2-5.4 [facility] Comment on above: Performed By: #### L 501.9520, L500.4050, L503.0105, L500.4100, L100.0100, L506.0400, L501.9060 #### [facility] [address] [place], [address] RDW SD 40.4 fl Normal 35.1-43.9 [facility] Comment on above: Performed By: #### L 501.9520, L500.4050, L503.0105, L500.4100, L100.0100, L506.0400, L501.9060 #### [facility] [address] [place], [address] WBC (Bld) [#/Vol] 9.6 10*3/uL Normal 4.4-11.0 [facility] Comment on above: Performed By: #### L 501.9520, L500.4050, L503.0105, L500.4100, L100.0100, L506.0400, L501.9060 #### [facility] [address] [place], [address] Comprehensive Metabolic Prof ilon 10-13-2023 Albumin [Mass/Vol] 3.8 g/dL Normal 3.2-5.0 [facility] Comment on above: Performed By: #### L 501.9520, L500.4050, L503.0105, L500.4100, L100.0100, L506.0400, L501.9060 #### [facility] [address] [place], [address] Albumin/Globulin [Mass ratio] 1.1 {ratio} Normal 0.9-2.4 [facility] Comment on above: Performed By: #### L 501.9520, L500.4050, L503.0105, L500.4100, L100.0100, L506.0400, L501.9060 #### [facility] [address] [place], [address] ALK P 65 U/L Normal 45-117 [facility] Comment on above: Performed By: #### L 501.9520, L500.4050, L503.0105, L500.4100, L100.0100, L506.0400, L501.9060 #### [facility] [address] [place], [address] ALT [Catalytic activity/Vol] 15 U/L Normal 13-56 [facility] Comment on above: Performed By: #### L 501.9520, L500.4050, L503.0105, L500.4100, L100.0100, L506.0400, L501.9060 #### [facility] [address] [place], [address] AST [Catalytic activity/Vol] 16 U/L Normal 15-37 [facility] Comment on above: Performed By: #### L 501.9520, L500.4050, L503.0105, L500.4100, L100.0100, L506.0400, L501.9060 #### [facility] [address] [place], [address] Bilirubin [Mass/Vol] 0.30 mg/dL Normal 0.20-1.00 [facility] Comment on above: Result Comment: For patients on eltrombopag therapy, use of Dimension [place] TBIL is not recommended. Performed By: #### L 501.9520, L500.4050, L503.0105, L500.4100, L100.0100, L506.0400, L501.9060 #### [facility] [address] [place], [address] BUN/CRE 11.9 RATIO Normal 10-20 [facility] Comment on above: Performed By: #### L 501.9520, L500.4050, L503.0105, L500.4100, L100.0100, L506.0400, L501.9060 #### [facility] [address] [place], [address] CA,Total 8.9 mg/dL Normal 8.5-10.1 [facility] Comment on above: Performed By: #### L 501.9520, L500.4050, L503.0105, L500.4100, L100.0100, L506.0400, L501.9060 #### [facility] [address] [place], [address] Chloride [Moles/Vol] 109 mmol/L High 98-107 [facility] Comment on above: Performed By: #### L 501.9520, L500.4050, L503.0105, L500.4100, L100.0100, L506.0400, L501.9060 #### [facility] [address] [place], [address] CO2 [Moles/Vol] 26.0 mmol/L Normal 21.0-32.0 [facility] Comment on above: Performed By: #### L 501.9520, L500.4050, L503.0105, L500.4100, L100.0100, L506.0400, L501.9060 #### [facility] [address] [place], [address] Creatinine [Mass/Vol] 0.76 mg/dL Normal 0.55-1.02 [facility] Comment on above: Result Comment: The validity of the calculated GFR GFRAA in patients over 70 years has not been determined. Clinical correlation is essential. Performed By: #### L 501.9520, L500.4050, L503.0105, L500.4100, L100.0100, L506.0400, L501.9060 #### [facility] [address] [place], [address] EST GFR - AA 101 mL/min Normal >60 [facility] Comment on above: Result Comment: Afri can Eritrean GFR Calc Performed By: #### L 501.9520, L500.4050, L503.0105, L500.4100, L100.0100, L506.0400, L501.9060 #### [facility] [address] [place], [address] GAP 5 Normal 5-15 [facility] Comment on above: Performed By: #### L 501.9520, L500.4050, L503.0105, L500.4100, L100.0100, L506.0400, L501.9060 #### [facility] [address] [place], [address] GFR/1.73 sq M.predicted among non-blacks MDRD (S/P/Bld) [Vol rate/Area] 83 mL/min/{1.73_m2} Normal >60 [facility] Comment on above: Result Comment: Non- GFR Calc Performed By: #### L 501.9520, L500.4050, L503.0105, L500.4100, L100.0100, L506.0400, L501.9060 #### [facility] [address] [place], [address] Globulin (S) [Mass/Vol] 3.6 g/dL Normal 2.2-4.2 [facility] Comment on above: Performed By: #### L 501.9520, L500.4050, L503.0105, L500.4100, L100.0100, L506.0400, L501.9060 #### [facility] [address] [place], [address] Glucose [Mass/Vol] 89 mg/dL Normal 74-106 [facility] Comment on above: Performed By: #### L 501.9520, L500.4050, L503.0105, L500.4100, L100.0100, L506.0400, L501.9060 #### [facility] [address] [place], [address] Potassium [Moles/Vol] 3.7 mmol/L Normal 3.5-5.1 [facility] Comment on above: Performed By: #### L 501.9520, L500.4050, L503.0105, L500.4100, L100.0100, L506.0400, L501.9060 #### [facility] [address] [place], [address] Sodium [Moles/Vol] 140 mmol/L Normal 136-145 [facility] Comment on above: Performed By: #### L 501.9520, L500.4050, L503.0105, L500.4100, L100.0100, L506.0400, L501.9060 #### [facility] [address] [place], [address] T PROT 7.4 g/dL Normal 6.4-8.2 [facility] Comment on above: Performed By: #### L 501.9520, L500.4050, L503.0105, L500.4100, L100.0100, L506.0400, L501.9060 #### [facility] [address] [place], [address] Urea nitrogen [Mass/Vol] 9 mg/dL Normal 7-18 [facility] Comment on above: Performed By: #### L 501.9520, L500.4050, L503.0105, L500.4100, L100.0100, L506.0400, L501.9060 #### [facility] [address] [place], [address] Internal Medicine Office Vis itoclaude 10-13-2023 Internal Medicine Office Visit [facility] [address] [place], [place] [address] OFFICE VISIT Date of Service: 10/13/23 MR#: [id number] Acct: [id number] Name: ANICETO BERNAL Rep #: [id number] : 1965 Provider: Dr. Adolfo johnson MD Age/Sex: 57/F Location: [facility] [place] Status: Signed Intake Vital Signs 12/19/22 21:20 10/13/23 14:53 Height 5 ft 5 ft Weight: 143 lb 6 oz BMI 28.0 BP 116/60 Blood Pressure Location Lt brachial Position Sitting Respiration 16 Pulse 55 L Pulse Source Monitor Temp 98.0 F Temp Source Temporal Pulse Oximetry (%) 98 Oxygen Delivery Method room air Intake Visit Reasons: [employer] EST CARE PPW SENT Chief Complaint: est care Piano Regulator Inspector Required: No Accompanied by: case checker Is patient in pain?: No Allergies No Known Allergies Allergy (Verified 10/13/23 09:45) Medications ???Medication ???Instructions ???Recorded ???Confirmed ???Type lithium carbonate 150 mg capsule 300 mg PO DAILY 12/19/22 10/13/23 History lithium carbonate 300 mg capsule 150 mg PO DAILY 12/19/22 10/13/23 History meclizine 25 mg chewable tablet 25 mg PO 4X/DAY 12/19/22 12/19/22 History (Antivert) risperidone 3 mg tablet (Risperdal) 1.5 mg PO DAILY 12/19/22 10/13/23 History benztropine 1 mg tablet 1 mg PO TID 10/13/23 10/13/23 History memantine 5 mg tablet 5 mg PO QPM #30 tabs 10/13/23 10/13/23 Rx naproxen sodium 220 mg capsule 220 mg PO Q12H PRN 10/13/23 10/13/23 History (Aleve) PFS Medical History (Updated 10/15/23 @ 14:[address] Adolfo Bustillos MD) History of breast cancer Health care maintenance Dementia Vision problem Seizures Liver disease Hormone deficiency Hepatitis Head ache Emotional problems Breast cancer Breast lump UTI (urinary tract infection) Bone fracture Bipolar 1 disorder Schizo affective schizophrenia Surgical History (Updated 10/13/23 @ 14:47 by Keely Jiang MA) Hx of partial mastectomy Social History (Updated 10/13/23 @ 14:49 by Keely Jiang MA) adopted: Yes household members: spouse and none housing: house current occupational status: unemployed Smoking Status: Former smoker alcohol intake: never substance use type: does not use what type of physical activity do you participate in: walking and yoga frequency: 3-4 times per week seatbelt use: always do you feel safe at home: Yes HPI HPI Chief Complaint: est care Details: ANICETO BERNAL, is a 57 F who presents to the office today to establish care. Also has some concerns. Had previously followed up with Dr. Thomas. Her case checker is present during this visit. She reports concerns about her memory. She states that she has been more forgetful lately and this is becoming concerning. Was evaluated by her prior PCP and initial evaluation was not concerning however due to her persistent concerns she was started initially on donepezil without any significant improvement. Subsequently started on Namenda. Initially was on 20 mg daily but, noted increased tics/tremors and so backed down on it and has been tapering herself off. Took her last dose today. She states that aside from the side effect from it she did not feel it made any difference. Has not been evaluated by neurology. Chronic history of bipolar/schizoaffectiv e disorder. Follows up with psychiatry at the counseling center. Overall stable. Currently on lithium and dose was recently reduced due to elevated lithium levels. Also on Risperdal and benztropine. History of breast cancer status post radiation therapy. Did not do tamoxifen due to medication interaction with her antipsychotics/mood stabilizers. She had bilateral oophorectomy and endom etrial ablation. Has not had a Pap smear since then (2009). Follows up with Dr. Brooks, last colonoscopy was 3 years ago and a 5 year follow-up was recommended. ROS Const Constitutional: No body ache, chills, excessive sweating, fatigue, fever(s), frequent falls, headache(s), snoring, weakness or change in appetite Eyes Eyes: No blurry vision, change in vision, bulging eyes, floaters, visual disturbances, eye pain or Light sensitivity ENT ENT: No abnormal hearing, ear or mastoid pain, tinnitus, balance problems, nosebleed/epistaxis, nasal congestion, headache(s), neck pain or sore throat Resp Respiratory: No cough, excessive phlegm production, pain on inspiration, shortness of breath, snoring or wheezing Cardio Cardiology: No chest pain at rest, chest pain with exertion, excessive sweating, dyspnea on exertion, lightheadedness, orthopnea or palpitations Gastro GI: No abdominal pain, change in bowel habits, constipation, cramping, diarrhea, nausea/dyspepsia or vomiting Genitourinary-Female: No burning urination, painful urination, urinary incontinence, urinary frequency, suprapubic fulln (more content not included)... Normal [facility] Lipid Profileon 10-13-2023 Cholesterol [Mass/Vol] 184 mg/dL Normal 200 [facility] Comment on above: Result Comment: <200 mg/dL Desirable 200-240 mg/dL Borderline >240 mg/dL High Risk Performed By: #### L [id number], L500.4050, L503.0105, L500.4100, L100.0100, L506.0400, L501.9060 #### [facility] [address] [place], [place], [id number] Cholesterol in HDL [Mass/Vol] 59 mg/dL Normal [facility] Comment on above: Result Comment: The drugs N-Acetylcysteine and Metamizole may falsely depress this assay. Reference Range HDL <40 mg/dL Low HDL Cholesterol HDL >or= 60 mg/dL High HDL Cholesterol Performed By: #### L [id number], L500.4050, L503.0105, L500.4100, L100.0100, L506.0400, L501.9060 #### [facility] [address] [place], [address] Cholesterol in LDL [Mass/Vol] 91 mg/dL Normal 0-130 [facility] Comment on above: Performed By: #### L [id number], L500.4050, L503.0105, L500.4100, L100.0100, L506.0400, L501.9060 #### [facility] [address] [place], [address] Cholesterol in VLDL [Mass/Vol] 34 mg/dL Normal 5-40 [facility] Comment on above: Performed By: #### L [id number], L500.4050, L503.0105, L500.4100, L100.0100, L506.0400, L501.9060 #### [facility] [address] [place], [address] Triglyceride [Mass/Vol] 170 mg/dL Normal [facility] Comment on above: Result Comment: The drugs N-Acetylcysteine and Metamizole may falsely depress this assay. Serum Triglycerides Reference Interval Normal <150 mg/dL Borderline high 150 - 199 mg/dL High 200 - 499 mg/dL Very High > or = 500 mg/dL Performed By: #### L [id number], L500.4050, L503.0105, L500.4100, L100.0100, L506.0400, L501.9060 #### [facility] [address] [place], [address] Lithiumon 10-13-2023 LI 0.80 mmol/L Normal 0.60-1.20 [facility] Comment on above: Order Comment: 899 Performed By: #### L [id number], L500.4050, L503.0105, L500.4100, L100.0100, L506.0400, L501.9060 #### [facility] [address] [place], [place], [address] T4 Free Directon 10-13-2023 T4 FREE DIRECT 0.86 ng/dL Normal 0.76-1.46 [facility] Comment on above: Performed By: #### L [id number], [id number], L503.0105, L500.4100, L100.0100, L506.0400, L501.9060 #### [facility] [address] [place], [place], [address] Thyroid Stim Hormone (TSH)on 10-13-2023 TSH 2.04 uIU/mL Normal 0.358-3.74 [facility] Comment on above: Performed By: #### L [id number], L500.4050, L503.0105, L500.4100, L100.0100, L506.0400, L501.9060 #### [facility] [address] [place], [address] Vitamin B12on 10-13-2023 Cobalamin (Vitamin B12) [Mass/Vol] 337 pg/mL Normal 211-911 [facility] Comment on above: Performed By: #### L [id number], [id number], L503.0105, L500.4100, L100.0100, L506.0400, L501.9060 #### [facility] [address] [place], [address] Lithiumon 06-21-2023 LI 0.50 mmol/L Low 0.60-1.20 [facility] Comment on above: Order Comment: Performed By: #### L 236.9060 ####[facility] [address] [place], [address] No Panel InformationOrdered By: PELON HUGGINS on 06-21-2023 [place] Level 0.50 mmol/L 0.60-1.20 [facility] Culture, urineOrdered By: Chicho Thomas on 04-12-2023 Bacteria identified Cx Nom (U) Culture exhibits no growth. [facility] Basophil percentageOrdered B y: PELON HUGGINS on 04-08-2023 WBC (Bld) [#/Vol] 8.5 10*3/uL 4.4-11.0 [facility] Blood erythrocytes count (nu mber/volume)Ordered By: PEOLN HUGGINS on 04-08-2023 RBC (Bld) [#/Vol] 5.06 10*6/uL 4.2-5.4 [facility] Blood hemoglobin measurement (mass/volume)Ordered By: PELON HUGGINS on 04-08-2023 Hemoglobin (Bld) [Mass/Vol] 15.3 g/dL 12.0-15.0 [facility] Blood platelet mean volumeOr dered By: PELON HUGGINS on 04-08-2023 Platelet mean volume (Bld) [Entitic vol] 9.4 fL 6.2-12.0 [facility] Determination of erythrocyte mean corpuscular volume (MCV)Ordered By: PELON HUGGINS on 04-08-2023 MCV (RBC) [Entitic vol] 94.1 fL 81-99 [facility] Hematocrit Auto (Bld) [Volum e fraction]Ordered By: PELON HUGGINS on 04-08-2023 Hematocrit (Bld) [Volume fraction] 47.6 % 37-47 [facility] - Hematology and Cell countsOrdered By: PELON HUGGINS on 04-08-2023 Erythrocyte distribution width (RBC) [Entitic vol] 41.0 fL 35.1-43.9 [facility] Erythrocyte distribution width (RBC) [Ratio] 11.9 % 11.6-14.6 [facility] MCH (RBC) [Entitic mass] 30.2 pg 27.0-32.0 [facility] MCHC Auto (RBC) [Mass/Vol]Or dered By: PELON HUGGINS on 04-08-2023 MCHC (RBC) [Mass/Vol] 32.1 g/dL 32-36 [facility] No Panel InformationOrdered By: PELON HUGGINS on 04-08-2023 [place] Level 0.40 mmol/L 0.60-1.20 [facility] Thyroid Stimulating Hormone (TSH) 1.82 uIU/mL 0.358-3.74 [facility] Platelets bldOrdered By: ROSENDA Angella APODACA LIZ on 04-08-2023 Platelets (Bld) [#/Vol] 228 10*3/uL 150-450 [facility] No Panel InformationOrdered By: PELON APODACA LIZ on 03-25-2023 [place] Level 1.30 mmol/L 0.60-1.20 [facility] No Panel InformationOrdered By: PELON HUGGINS on 02-23-2023 [place] Level 1.10 mmol/L 0.60-1.20 [facility] Absolute lymphocyte countOrd ered By: Mahin Thomas on 01-21-2023 Lymphocytes Auto (Unsp spec) [#/Vol] 2.16 10*3/uL 0.83-4.51 [facility] Basophil percentageOrdered B y: Mahin William on 01-21-2023 Basophils/100 WBC (Bld) 0.5 % 0-1 [facility] Bilirubin [Mass/Vol] 0.40 mg/dL 0.20-1.00 [facility] Comment on above: For patients on eltr ombopag therapy, use of Dimension [place] TBIL is not recommended. Chloride [Moles/Vol] 110 mmol/L 98-107 [facility] Eosinophils/100 WBC (Bld) 1.0 % 0-5 [facility] Glucose [Mass/Vol] 119 mg/dL 74-106 [facility] Comment on above: Fasting Glucose resu lt from 100 to 125 mg/dL suggests IMPAIRED HOMEOSTASIS per A.D.A. criteria. Neutrophils (Bld) [#/Vol] 5.1 10*3/uL 2.0-7.7 [facility] Neutrophils/100 WBC (Bld) 65.1 % 47-70 [facility] Potassium [Moles/Vol] 3.5 mmol/L 3.5-5.1 [facility] Protein [Mass/Vol] 7.6 g/dL 6.4-8.2 [facility] Sodium [Moles/Vol] 140 mmol/L 136-145 [facility] WBC (Bld) [#/Vol] 7.9 10*3/uL 4.4-11.0 [facility] Blood erythrocytes count (nu mber/volume)Ordered By: Mahin Thomas on 01-21-2023 RBC (Bld) [#/Vol] 4.71 10*6/uL 4.2-5.4 [facility] Blood hemoglobin measurement (mass/volume)Ordered By: Mahin Thomas on 01-21-2023 Hemoglobin (Bld) [Mass/Vol] 14.8 g/dL 12.0-15.0 [facility] Blood lymphocytes/100 leukoc ytesOrdered By: [facility] Lymphocytes/100 WBC (Bld) 27.5 % 19-41 [facility] Blood monocytes/100 leukocyt esOrdered By: [facility] 01-[facility]-2023 Monocytes/100 WBC (Bld) 5.6 % 0-10 [facility] Blood platelet mean volumeOr dered By: [facility] on 01-21-2023 Platelet mean volume (Bld) [Entitic vol] 9.5 fL 6.2-12.0 [facility] Determination of erythrocyte mean corpuscular volume (MCV)Ordered By: Mahin William on 01-21-2023 MCV (RBC) [Entitic vol] 92.6 fL 81-99 [facility] Hematocrit Auto (Bld) [Volum e fraction]Ordered By: [facility] on 01-21-2023 Hematocrit (Bld) [Volume fraction] 43.6 % 37-47 [facility] - Chemistry and C hemistry - challengeOrdered By: [facility] 01-[facility]-2023 ALP [Catalytic activity/Vol] 60 U/L 45-117 [facility] ALT [Catalytic activity/Vol] 17 U/L 13-56 [facility] CO2 [Moles/Vol] 27.0 mmol/L 21.0-32.0 [facility] Globulin (S) [Mass/Vol] 4.0 g/dL 2.2-4.2 [facility] Urea nitrogen/Creatinine [Mass ratio] 7.6 mg/mg 10-20 [facility] - Hematology and Cell countsOrdered By: Mahin Thomas on 01-21-2023 Erythrocyte distribution width (RBC) [Entitic vol] 40.4 fL 35.1-43.9 [facility] Erythrocyte distribution width (RBC) [Ratio] 11.9 % 11.6-14.6 [facility] Immature granulocytes/100 WBC (Bld) 0.300 % 0.0-0.9 [facility] Comment on above: IG% - Immature Granu locytes (promyelocytes, myelocytes and metamyelocytes) > 1% indicates that a LEFT SHIFT is Present. MCH (RBC) [Entitic mass] 31.4 pg 27.0-32.0 [facility] Nucleated RBC/100 WBC (Bld) [Ratio] 0 % 0-5 [facility] MCHC Auto (RBC) [Mass/Vol]Or dered By: Mahin Thomas on 01-21-2023 MCHC (RBC) [Mass/Vol] 33.9 g/dL 32-36 [facility] No Panel InformationOrdered By: Mahin Thomas on 01-21-2023 Estimated GFR (MDRD) Amer 97 mL/min >60 [facility] Comment on above: GFR Calc Estimated GFR (MDRD) Non-Af Amer 80 mL/min >60 [facility] Comment on above: Non- GFR Calc [place] Level 1.00 mmol/L 0.60-1.20 [facility] Thyroid Stimulating Hormone (TSH) 1.58 uIU/mL 0.358-3.74 [facility] Platelets bldOrdered By: Mahin Thomas on 01-21-2023 Platelets (Bld) [#/Vol] 226 10*3/uL 150-450 [facility] Serum or plasma albumin adina urement (mass/volume)Ordered By: Mahin Thomas on 01-21-2023 Albumin [Mass/Vol] 3.6 g/dL 3.2-5.0 [facility] Serum or plasma albumin/glob ulin mass ratioOrdered By: Mahin Thomas 01-21-2023 Albumin/Globulin [Mass ratio] 0.9 {ratio} 0.9-2.4 [facility] Serum or plasma calcium adina urement (mass/volume)Ordered By: Mahin Thomas on 01-21-2023 Calcium [Mass/Vol] 9.0 mg/dL 8.5-10.1 [facility] Serum or plasma creatinine m easurement (mass/volume)Ordered By: Mahin Thomas on 01-21-2023 Creatinine [Mass/Vol] 0.79 mg/dL 0.55-1.02 [facility] Comment on above: The validity of the calculated GFR & GFRAA in patients over 70 years has not been determined. Clinical correlation is essential. Serum or plasma urea nitroge n measurement (mass/volume)Ordered By: Mahin Thomas on 01-21-2023 Urea nitrogen [Mass/Vol] 6 mg/dL 7- [facility] Thin prep Papanicolaou smear with manual screeningOrdered By: Mahin Thomas on 01-21-2023 Thin prep Papanicolaou smear with manual screening 15 U/L 15-37 [facility] Thin prep Papanicolaou smear with manual screening 3 5-15 [facility] No Panel InformationOrdered By: Mahin Thomas on 12-25-2022 [place] Level 0.30 mmol/L 0.60-1.20 [facility] Basophil percentageOrdered B y: PELON HUGGINS on 12-21-2022 Bilirubin [Mass/Vol] 0.50 mg/dL 0.20-1.00 [facility] Comment on above: For patients on eltr ombopag therapy, use of Dimension [place] TBIL is not recommended. Chloride [Moles/Vol] 108 mmol/L 98-107 [facility] Glucose [Mass/Vol] 104 mg/dL 74-106 [facility] Comment on above: Fasting Glucose resu lt from 100 to 125 mg/dL suggests IMPAIRED HOMEOSTASIS per A.D.A. criteria. Potassium [Moles/Vol] 3.7 mmol/L 3.5-5.1 [facility] Protein [Mass/Vol] 7.6 g/dL 6.4-8.2 [facility] Sodium [Moles/Vol] 140 mmol/L 136-145 [facility] - Chemistry and C hemistry - challengeOrdered By: PELON HUGGINS on 12-21-2022 ALP [Catalytic activity/Vol] 59 U/L 45-117 [facility] ALT [Catalytic activity/Vol] 17 U/L 13-56 [facility] CO2 [Moles/Vol] 27.0 mmol/L 21.0-32.0 [facility] Free T4 [Mass/Vol] 0.97 ng/dL 0.76-1.46 [facility] Globulin (S) [Mass/Vol] 3.8 g/dL 2.2-4.2 [facility] Urea nitrogen/Creatinine [Mass ratio] 6.8 mg/mg 10-20 [facility] No Panel InformationOrdered By: PELON HUGGINS on 12-21-2022 Estimated GFR (MDRD) Amer 85 mL/min >60 [facility] Comment on above: GFR Calc Estimated GFR (MDRD) Non-Af Amer 70 mL/min >60 [facility] Comment on above: Non- GFR Calc Free Triiodothyronine (T3) pg/dL 1.9 pg/mL 2.18-3.98 [facility] [place] Level 0.80 mmol/L 0.60-1.20 [facility] Thyroid Stimulating Hormone (TSH) 1.74 uIU/mL 0.358-3.74 [facility] Serum or plasma albumin adina urement (mass/volume)Ordered By: PELON HUGGINS on 12-21-2022 Albumin [Mass/Vol] 3.8 g/dL 3.2-5.0 [facility] Serum or plasma albumin/glob ulin mass ratioOrdered By: PELON HUGGINS on 12-21-2022 Albumin/Globulin [Mass ratio] 1.0 {ratio} 0.9-2.4 [facility] Serum or plasma calcium adina urement (mass/volume)Ordered By: PELON HUGGINS on 12-21-2022 Calcium [Mass/Vol] 9.3 mg/dL 8.5-10.1 [facility] Serum or plasma creatinine m easurement (mass/volume)Ordered By: PELON HUGGINS on 12-21-2022 Creatinine [Mass/Vol] 0.88 mg/dL 0.55-1.02 [facility] Comment on above: The validity of the calculated GFR & GFRAA in patients over 70 years has not been determined. Clinical correlation is essential. Serum or plasma urea nitroge n measurement (mass/volume)Ordered By: PELON HUGGINS on 12-21-2022 Urea nitrogen [Mass/Vol] 6 mg/dL 7-18 [facility] Thin prep Papanicolaou smear with manual screeningOrdered By: PELON APODACA PRA on 12-21-2022 Thin prep Papanicolaou smear with manual screening 16 U/L 15-37 [facility] Thin prep Papanicolaou smear with manual screening 5 5-15 [facility] Absolute lymphocyte countOrd ered By: Gabo Zaragoza on 12-19-2022 Lymphocytes Auto (Unsp spec) [#/Vol] 3.38 10*3/uL 0.83-4.51 [facility] Basophil percentageOrdered B y: Gabo Zaragoza on 12-19-2022 Basophils/100 WBC (Bld) 0.5 % 0-1 [facility] Chloride [Moles/Vol] 108 mmol/L 98-107 [facility] Eosinophils/100 WBC (Bld) 1.6 % 0-5 [facility] Glucose [Mass/Vol] 117 mg/dL 74-106 [facility] Comment on above: Fasting Glucose resu lt from 100 to 125 mg/dL suggests IMPAIRED HOMEOSTASIS per A.D.A. criteria. Neutrophils (Bld) [#/Vol] 6.5 10*3/uL 2.0-7.7 [facility] Neutrophils/100 WBC (Bld) 59.5 % 47-70 [facility] Potassium [Moles/Vol] 3.6 mmol/L 3.5-5.1 [facility] Sodium [Moles/Vol] 139 mmol/L 136-145 [facility] WBC (Bld) [#/Vol] 11.0 10*3/uL 4.4-11.0 [facility] Blood erythrocytes count (nu mber/volume)Ordered By: Gabo Zaragoza on 12-19-2022 RBC (Bld) [#/Vol] 4.74 10*6/uL 4.2-5.4 [facility] Blood hemoglobin measurement (mass/volume)Ordered By: Gabo Zaragoza on 12-19-2022 Hemoglobin (Bld) [Mass/Vol] 14.4 g/dL 12.0-15.0 [facility] Blood lymphocytes/100 leukoc ytesOrdered By: Gabo Zaragoza on 12-19-2022 Lymphocytes/100 WBC (Bld) 30.9 % 19-41 [facility] Blood monocytes/100 leukocyt esOrdered By: Gabo Zaragoza on 12-19-2022 Monocytes/100 WBC (Bld) 7.2 % 0-10 [facility] Blood platelet mean volumeOr dered By: Gabo Zaragoza on 12-19-2022 Platelet mean volume (Bld) [Entitic vol] 9.5 fL 6.2-12.0 [facility] Determination of erythrocyte mean corpuscular volume (MCV)Ordered By: Gabo Zaragoza on 12-19-2022 MCV (RBC) [Entitic vol] 93.0 fL 81-99 [facility] Hematocrit Auto (Bld) [Volum e fraction]Ordered By: Gabo Zaragoza on 12-19-2022 Hematocrit (Bld) [Volume fraction] 44.1 % 37-47 [facility] - Chemistry and C hemistry - challengeOrdered By: Gabo Zaragoza on 12-19-2022 CO2 [Moles/Vol] 27.0 mmol/L 21.0-32.0 [facility] Urea nitrogen/Creatinine [Mass ratio] 6.2 mg/mg 10-20 [facility] - Hematology and Cell countsOrdered By: Gabo Zaragoza on 12-19-2022 Erythrocyte distribution width (RBC) [Entitic vol] 41.0 fL 35.1-43.9 [facility] Erythrocyte distribution width (RBC) [Ratio] 11.9 % 11.6-14.6 [facility] Immature granulocytes/100 WBC (Bld) 0.300 % 0.0-0.9 [facility] Comment on above: IG% - Immature Granu locytes (promyelocytes, myelocytes and metamyelocytes) > 1% indicates that a LEFT SHIFT is Present. MCH (RBC) [Entitic mass] 30.4 pg 27.0-32.0 [facility] Nucleated RBC/100 WBC (Bld) [Ratio] 0 % 0-5 [facility] MCHC Auto (RBC) [Mass/Vol]Or dered By: Gabo Zaragoza on 12-19-2022 MCHC (RBC) [Mass/Vol] 32.7 g/dL 32-36 [facility] No Panel InformationOrdered By: Gabo Zaragoza on 12-19-2022 Estimated Creatinine Clearance Calc 45.41 ml/min [facility] Estimated GFR (MDRD) Amer 76 mL/min >60 [facility] Comment on above: GFR Calc Estimated GFR (MDRD) Non-Af Amer 63 mL/min >60 [facility] Comment on above: Non- GFR Calc [place] Level 0.90 mmol/L 0.60-1.20 [facility] Platelets bldOrdered By: Corrie Zaragoza on 12-19-2022 Platelets (Bld) [#/Vol] 219 10*3/uL 150-450 [facility] Serum or plasma calcium adina urement (mass/volume)Ordered By: Gabo Zaragoza on 12-19-2022 Calcium [Mass/Vol] 9.4 mg/dL 8.5-10.1 [facility] Serum or plasma creatinine m easurement (mass/volume)Ordered By: Gabo Zaragoza on 12-19-2022 Creatinine [Mass/Vol] 0.97 mg/dL 0.55-1.02 [facility] Comment on above: The validity of the calculated GFR & GFRAA in patients over 70 years has not been determined. Clinical correlation is essential. Serum or plasma urea nitroge n measurement (mass/volume)Ordered By: Gabo Zaragoza on 12-19-2022 Urea nitrogen [Mass/Vol] 6 mg/dL 7-18 [facility] Thin prep Papanicolaou smear with manual screeningOrdered By: Gabo Zaragoza on 12-19-2022 Thin prep Papanicolaou smear with manual screening 4 5-15 [facility] Absolute lymphocyte countOrd ered By: Mahin Thomas on 12-18-2022 Lymphocytes Auto (Unsp spec) [#/Vol] 1.71 10*3/uL 0.83-4.51 [facility] Basophil percentageOrdered B y: Mahin Thomas on 12-18-2022 Basophils/100 WBC (Bld) 0.5 % 0-1 [facility] Chloride [Moles/Vol] 107 mmol/L 98-107 [facility] Eosinophils/100 WBC (Bld) 0.9 % 0-5 [facility] Glucose [Mass/Vol] 111 mg/dL 74-106 [facility] Comment on above: Fasting Glucose resu lt from 100 to 125 mg/dL suggests IMPAIRED HOMEOSTASIS per A.D.A. criteria. Neutrophils (Bld) [#/Vol] 5.9 10*3/uL 2.0-7.7 [facility] Neutrophils/100 WBC (Bld) 72.6 % 47-70 [facility] Potassium [Moles/Vol] 3.9 mmol/L 3.5-5.1 [facility] Sodium [Moles/Vol] 138 mmol/L 136-145 [facility] WBC (Bld) [#/Vol] 8.2 10*3/uL 4.4-11.0 [facility] Bilirubin Test strip Ql (U)O rdered By: Mahin Thomas on 12-18-2022 Bilirubin Ql (U) Negative Negative [facility] Blood erythrocytes count (nu mber/volume)Ordered By: Mahin Thomas on 12-18-2022 RBC (Bld) [#/Vol] 4.84 10*6/uL 4.2-5.4 [facility] Blood hemoglobin measurement (mass/volume)Ordered By: Mahin Thomas on 12-18-2022 Hemoglobin (Bld) [Mass/Vol] 14.9 g/dL 12.0-15.0 [facility] Blood lymphocytes/100 leukoc ytesOrdered By: Mahin Thomas on 12-18-2022 Lymphocytes/100 WBC (Bld) 21.0 % 19-41 [facility] Blood monocytes/100 leukocyt esOrdered By: Mahin Thomas on 12-18-2022 Monocytes/100 WBC (Bld) 4.8 % 0-10 [facility] Blood platelet mean volumeOr dered By: Mahin Thomas on 12-18-2022 Platelet mean volume (Bld) [Entitic vol] 9.9 fL 6.2-12.0 [facility] Culture, urineOrdered By: Chicho Thomas on 12-18-2022 Bacteria identified Cx Nom (U) Culture exhibits no growth. [facility] Bacteria identified Cx Nom (U) Culture exhibits no growth. [facility] Determination of erythrocyte mean corpuscular volume (MCV)Ordered By: Mahin Thomas on 12-18-2022 MCV (RBC) [Entitic vol] 94.2 fL 81-99 [facility] Hematocrit Auto (Bld) [Volum e fraction]Ordered By: Mahin Thomas on 12-18-2022 Hematocrit (Bld) [Volume fraction] 45.6 % 37-47 [facility] Ketones Test strip Ql (U)Ord ered By: Mahni Thomas on 12-18-2022 Ketones Ql (U) Negative Negative [facility] Laboratory - Chemistry and C hemistry - challengeOrdered By: Mahin Thomas on 12-18-2022 CO2 [Moles/Vol] 28.0 mmol/L 21.0-32.0 [facility] Urea nitrogen/Creatinine [Mass ratio] 5.6 mg/mg 10-20 [facility] Laboratory - Hematology and Cell countsOrdered By: Mahin Thomas on 12-18-2022 Erythrocyte distribution width (RBC) [Entitic vol] 41.5 fL 35.1-43.9 [facility] Erythrocyte distribution width (RBC) [Ratio] 12.0 % 11.6-14.6 [facility] Immature granulocytes/100 WBC (Bld) 0.200 % 0.0-0.9 [facility] Comment on above: IG% - Immature Granu locytes (promyelocytes, myelocytes and metamyelocytes) > 1% indicates that a LEFT SHIFT is Present. MCH (RBC) [Entitic mass] 30.8 pg 27.0-32.0 [facility] Nucleated RBC/100 WBC (Bld) [Ratio] 0 % 0-5 [facility] MCHC Auto (RBC) [Mass/Vol]Or dered By: Mahin Thomas on 12-18-2022 MCHC (RBC) [Mass/Vol] 32.7 g/dL 32-36 [facility] Nitrite Test strip Ql (U)Ord ered By: Mahin Thomas on 12-18-2022 Nitrite Ql (U) Negative Negative [facility] No Panel InformationOrdered By: Mahin Thomas on 12-18-2022 Estimated GFR (MDRD) Amer 83 mL/min >60 [facility] Comment on above: GFR Calc Estimated GFR (MDRD) Non-Af Amer 69 mL/min >60 [facility] Comment on above: Non- GFR Calc [place] Level 1.80 mmol/L 0.60-1.20 [facility] Comment on above: Critical Result(s) C alled at: 12:59:25 12/18/2022 by: Carrie Murillo to Dr Thomas. Results read back by same. Platelets bldOrdered By: Mahin Thomas on 12-18-2022 Platelets (Bld) [#/Vol] 230 10*3/uL 150-450 [facility] Protein Test strip Ql (U)Ord ered By: Mahin Thomas on 12-18-2022 Protein Ql (U) Negative Negative [facility] Serum or plasma calcium adina urement (mass/volume)Ordered By: Mahin Thomas on 12-18-2022 Calcium [Mass/Vol] 9.8 mg/dL 8.5-10.1 [facility] Serum or plasma creatinine m easurement (mass/volume)Ordered By: Mahin Thomas on 12-18-2022 Creatinine [Mass/Vol] 0.90 mg/dL 0.55-1.02 [facility] Comment on above: The validity of the calculated GFR & GFRAA in patients over 70 years has not been determined. Clinical correlation is essential. Serum or plasma urea nitroge n measurement (mass/volume)Ordered By: Mahin Thomas on 12-18-2022 Urea nitrogen [Mass/Vol] 5 mg/dL 7-18 [facility] Thin prep Papanicolaou smear with manual screeningOrdered By: Mahin Thomas 12-18-2022 Thin prep Papanicolaou smear with manual screening 3 5-15 [facility] Urine blood detectionOrdered By: Mahin Thomas on 12-18-2022 RBC Ql (U) Negative Negative [facility] Urine clarityOrdered By: Mahin Thomas on 12-18-2022 Clarity (U) Clear Clear [facility] Urine color determinationOrd ered By: Mahin Thomas on 12-18-2022 Color (U) Yellow Yellow [facility] Urine glucose detectionOrder ed By: Mahin Thomas on 12-18-2022 Glucose Ql (U) Normal mg/dl Normal [facility] Urine leukocyte esterase det ection by dipstickOrdered By: Mahin Thomas on 12-18-2022 Leukocyte esterase Test strip Ql (U) Negative Negative [facility] Urine pHOrdered By: Mahin Thomas on 12-18-2022 pH (U) 7.0 [pH] 5.0 - 8.0 [facility] Urine specific gravity measu rementOrdered By: Mahin Thomas on 12-18-2022 Specific gravity (U) [Rel density] 1.005 1.002-1.030 [facility] Urobilinogen Auto test strip Ql (U)Ordered By: Mahin Thomas on 12-18-2022 Urobilinogen Ql (U) Normal mg/dl Normal [facility] Absolute lymphocyte countOrd ered By: Dr. Thomas on 07-23-2022 Lymphocytes Auto (Unsp spec) [#/Vol] 2.02 10*3/uL 0.83-4.51 [facility] Basophil percentageOrdered B y: Dr. Thomas on 07-23-2022 Basophils/100 WBC (Bld) 0.6 % 0-1 [facility] Bilirubin [Mass/Vol] 0.30 mg/dL 0.20-1.00 [facility] Comment on above: For patients on eltr ombopag therapy, use of Dimension [place] TBIL is not recommended. Chloride [Moles/Vol] 103 mmol/L 98-107 [facility] Eosinophils/100 WBC (Bld) 0.7 % 0-5 [facility] Glucose [Mass/Vol] 91 mg/dL 74-106 [facility] Neutrophils (Bld) [#/Vol] 6.8 10*3/uL 2.0-7.7 [facility] Neutrophils/100 WBC (Bld) 71.8 % 47-70 [facility] Potassium [Moles/Vol] 3.6 mmol/L 3.5-5.1 [facility] Protein [Mass/Vol] 7.9 g/dL 6.4-8.2 [facility] Sodium [Moles/Vol] 138 mmol/L 136-145 [facility] WBC (Bld) [#/Vol] 9.5 10*3/uL 4.4-11.0 [facility] Blood erythrocytes count (nu mber/volume)Ordered By: Dr. Thomas on 07-23-2022 RBC (Bld) [#/Vol] 4.93 10*6/uL 4.2-5.4 [facility] Blood hemoglobin measurement (mass/volume)Ordered By: Dr. Thomas on 07-23-2022 Hemoglobin (Bld) [Mass/Vol] 14.9 g/dL 12.0-15.0 [facility] Blood lymphocytes/100 leukoc ytesOrdered By: Dr. Thomas on 07-23-2022 Lymphocytes/100 WBC (Bld) 21.3 % 19-41 [facility] Blood monocytes/100 leukocyt esOrdered By: Dr. Thomas on 07-23-2022 Monocytes/100 WBC (Bld) 5.3 % 0-10 [facility] Blood platelet mean volumeOr dered By: Dr. Thomas on 07-23-2022 Platelet mean volume (Bld) [Entitic vol] 10.3 fL 6.2-12.0 [facility] Determination of erythrocyte mean corpuscular volume (MCV)Ordered By: Dr. Thomas on 07-23-2022 MCV (RBC) [Entitic vol] 93.5 fL 81-99 [facility] Hematocrit Auto (Bld) [Volum e fraction]Ordered By: Dr. Thomas on 07-23-2022 Hematocrit (Bld) [Volume fraction] 46.1 % 37-47 [facility] Laboratory - Chemistry and C hemistry - challengeOrdered By: Dr. Thomas on 07-23-2022 ALP [Catalytic activity/Vol] 63 U/L 45-117 [facility] ALT [Catalytic activity/Vol] 24 U/L 13-56 [facility] CO2 [Moles/Vol] 29.0 mmol/L 21.0-32.0 [facility] Globulin (S) [Mass/Vol] 4.1 g/dL 2.2-4.2 [facility] Urea nitrogen/Creatinine [Mass ratio] 9.2 mg/mg 10-20 [facility] Laboratory - Hematology and Cell countsOrdered By: Dr. Thomas on 07-23-2022 Erythrocyte distribution width (RBC) [Entitic vol] 41.6 fL 35.1-43.9 [facility] Erythrocyte distribution width (RBC) [Ratio] 12.1 % 11.6-14.6 [facility] Immature granulocytes/100 WBC (Bld) 0.300 % 0.0-0.9 [facility] Comment on above: IG% - Immature Granu locytes (promyelocytes, myelocytes and metamyelocytes) > 1% indicates that a LEFT SHIFT is Present. MCH (RBC) [Entitic mass] 30.2 pg 27.0-32.0 [facility] Nucleated RBC/100 WBC (Bld) [Ratio] 0 % 0-5 [facility] MCHC Auto (RBC) [Mass/Vol]Or dered By: Dr. Thomas on 07-23-2022 MCHC (RBC) [Mass/Vol] 32.3 g/dL 32-36 [facility] No Panel InformationOrdered By: Dr. Thomas on 07-23-2022 Estimated GFR (MDRD) Amer 86 mL/min >60 [facility] Comment on above: GFR Calc Estimated GFR (MDRD) Non-Af Amer 71 mL/min >60 [facility] Comment on above: Non- GFR Calc Thyroid Stimulating Hormone (TSH) 1.57 uIU/mL 0.358-3.74 [facility] Platelets bldOrdered By: Dr. Thomas on 07-23-2022 Platelets (Bld) [#/Vol] 207 10*3/uL 150-450 [facility] Serum or plasma albumin adina urement (mass/volume)Ordered By: Dr. Thomas on 07-23-2022 Albumin [Mass/Vol] 3.8 g/dL 3.2-5.0 [facility] Serum or plasma albumin/glob ulin mass ratioOrdered By: Dr. Thomas on 07-23-2022 Albumin/Globulin [Mass ratio] 0.9 {ratio} 0.9-2.4 [facility] Serum or plasma calcium adina urement (mass/volume)Ordered By: Dr. Thomas on 07-23-2022 Calcium [Mass/Vol] 9.5 mg/dL 8.5-10.1 [facility] Serum or plasma creatinine m easurement (mass/volume)Ordered By: Dr. Thomas on 07-23-2022 Creatinine [Mass/Vol] 0.87 mg/dL 0.55-1.02 [facility] Comment on above: The validity of the calculated GFR & GFRAA in patients over 70 years has not been determined. Clinical correlation is essential. Serum or plasma urea nitroge n measurement (mass/volume)Ordered By: Dr. Thomas on 07-23-2022 Urea nitrogen [Mass/Vol] 8 mg/dL 7-18 [facility] Thin prep Papanicolaou smear with manual screeningOrdered By: Dr. Thomas on 07-23-2022 Thin prep Papanicolaou smear with manual screening 18 U/L 15-37 [facility] Thin prep Papanicolaou smear with manual screening 6 5-15 [facility] Absolute lymphocyte counton 01-15-2022 Lymphocytes Auto (Unsp spec) [#/Vol] 2.26 10*3/uL 0.83-4.51 [facility] Work Phone: Basophil percentageon 2021 Basophils/100 WBC (Bld) 0.5 % 0-1 [facility] Work Phone: Bilirubin [Mass/Vol] 0.40 mg/dL 0.20-1.00 [facility] Work Phone: Comment on above: For patients on eltr ombopag therapy, use of Dimension [place] TBIL is not recommended. Chloride [Moles/Vol] 108 mmol/L 98-107 [facility] Work Phone: Eosinophils/100 WBC (Bld) 1.0 % 0-5 [facility] Work Phone: Glucose [Mass/Vol] 113 mg/dL 74-106 [facility] Work Phone: Comment on above: Fasting Glucose resu lt from 100 to 125 mg/dL suggests IMPAIRED HOMEOSTASIS per A.D.A. criteria. Neutrophils (Bld) [#/Vol] 7.0 10*3/uL 2.0-7.7 [facility] Work Phone: Neutrophils/100 WBC (Bld) 69.9 % 47-70 [facility] Work Phone: Potassium [Moles/Vol] 3.4 mmol/L 3.5-5.1 [facility] Work Phone: Protein [Mass/Vol] 7.9 g/dL 6.4-8.2 [facility]: Sodium [Moles/Vol] 140 mmol/L 136-145 [facility] Work Phone: WBC (Bld) [#/Vol] 10.1 10*3/uL 4.4-11.[address] [facility] [facility] Work Phone: Blood erythrocytes count (nu mber/volume)on 01-15-2022 RBC (Bld) [#/Vol] 4.78 10*6/uL 4.2-5.4 [facility] Work Phone: Blood hemoglobin measurement (mass/volume)on 01-15-2022 Hemoglobin (Bld) [Mass/Vol] 14.3 g/dL 12.0-15.0 [facility] Work Phone: Blood lymphocytes/100 leukoc yteson 01-15-2022 Lymphocytes/100 WBC (Bld) 22.5 % 19-41 [facility] Work Phone: [phone] Blood monocytes/100 leukocyt eson 01-15-2022 Monocytes/100 WBC (Bld) 5.8 % 0-10 [facility] Work Phone: Blood platelet mean volumeon 01-15-2022 Platelet mean volume (Bld) [Entitic vol] 10.1 fL 6.2-12.0 [facility] Work Phone: Determination of erythrocyte mean corpuscular volume (MCV)on 01-15-2022 MCV (RBC) [Entitic vol] 90.8 fL 81-99 [facility] Work Phone: [phone] Hematocrit Auto (Bld) [Volum e fraction]on 01-15-2022 Hematocrit (Bld) [Volume fraction] 43.4 % 37-47 [facility] Work Phone: Laboratory - Chemistry and C hemistry - challengeon 01-15-2022 ALP [Catalytic activity/Vol] 75 U/L 45-117 [facility] Work Phone: [phone] ALT [Catalytic activity/Vol] 21 U/L 13-56 [facility] Work Phone: [phone] CO2 [Moles/Vol] 23.0 mmol/L 21.0-32.0 [facility] Work Phone: [phone] Globulin (S) [Mass/Vol] 4.2 g/dL 2.2-4.2 [facility] Work Phone: [phone] Urea nitrogen/Creatinine [Mass ratio] 7.8 mg/mg 10-20 [facility] Work Phone: [phone] Laboratory - Hematology and Cell countson 01-15-2022 Erythrocyte distribution width (RBC) [Entitic vol] 41.1 fL 35.1-43.9 [facility] Work Phone: [phone] Erythrocyte distribution width (RBC) [Ratio] 12.3 % 11.6-14.6 [facility] Work Phone: [phone] Immature granulocytes/100 WBC (Bld) 0.300 % 0.0-0.9 [facility] Work Phone: [phone] Comment on above: IG% - Immature Granu locytes (promyelocytes, myelocytes and metamyelocytes) > 1% indicates that a LEFT SHIFT is Present. MCH (RBC) [Entitic mass] 29.9 pg 27.0-32.0 [facility] Work Phone: [phone] Nucleated RBC/100 WBC (Bld) [Ratio] 0 % 0-5 [facility] Work Phone: [phone] MCHC Auto (RBC) [Mass/Vol]on 01-15-2022 MCHC (RBC) [Mass/Vol] 32.9 g/dL 32-36 [facility] Work Phone: [phone] No Panel Informationon 01-15 Estimated GFR (MDRD) Amer 100 mL/min >60 [facility] Work Phone: [phone] Comment on above: GFR Calc Estimated GFR (MDRD) Non-Af Amer 83 mL/min >60 [facility] Work Phone: Comment on above: Non- GFR Calc [place] Level 0.70 mmol/L 0.60-1.20 [facility] Work Phone: Thyroid Stimulating Hormone (TSH) 1.39 uIU/mL 0.358-3.74 [facility] Work Phone: Vitamin D 25-Hydroxy 14.5 ng/mL [facility] Work Phone: Comment on above: Vitamin D 25(OH) Sta tus Range Deficiency <20 ng/mL (50nmol/L) Insufficiency 20 - 30 ng/mL (50 - 75 nmol/L) Sufficiency 30 - 100 ng/mL (75 - 250 nmol/L) Toxicity >100 ng/mL (>250 nmol/L) Platelets bldon 01-15-2022 Platelets (Bld) [#/Vol] 248 10*3/uL 150-450 [facility] Work Phone: Serum or plasma albumin adina urement (mass/volume)on 01-15-2022 Albumin [Mass/Vol] 3.7 g/dL 3.2-5.0 [facility] Work Phone: Serum or plasma albumin/glob ulin mass ratioon 01-15-2022 Albumin/Globulin [Mass ratio] 0.9 {ratio} 0.9-2.4 [facility] Work Phone: Serum or plasma calcium adina urement (mass/volume)on 01-15-2022 Calcium [Mass/Vol] 9.5 mg/dL 8.5-10.1 [facility] Work Phone: Serum or plasma creatinine m easurement (mass/volume)on 01-15-2022 Creatinine [Mass/Vol] 0.76 mg/dL 0.55-1.02 [facility] Work Phone: Comment on above: The validity of the calculated GFR & GFRAA in patients over 70 years has not been determined. Clinical correlation is essential. Serum or plasma urea nitroge n measurement (mass/volume)on 01-15-2022 Urea nitrogen [Mass/Vol] 6 mg/dL 7-18 [facility] Work Phone: Thin prep Papanicolaou smear with manual screeningon 01-15-2022 Thin prep Papanicolaou smear with manual screening 17 U/L 15-37 [facility] Work Phone: Thin prep Papanicolaou smear with manual screening 9 5-15 [facility] Work Phone: Basophil percentageon 2021 Bilirubin [Mass/Vol] 0.50 mg/dL 0.20-1.00 [facility] Work Phone: Comment on above: For patients on eltr ombopag therapy, use of Dimension [place] TBIL is not recommended. Chloride [Moles/Vol] 109 mmol/L 98-107 [facility] Work Phone: Glucose [Mass/Vol] 95 mg/dL 74-106 [facility] Work Phone: Potassium [Moles/Vol] 3.6 mmol/L 3.5-5.1 [facility] Work Phone: Protein [Mass/Vol] 7.8 g/dL 6.4-8.2 [facility] Work Phone: Sodium [Moles/Vol] 141 mmol/L 136-145 [facility] Work Phone: Laboratory - Chemistry and C hemistry - challengeon 11-20-2021 ALP [Catalytic activity/Vol] 62 U/L 45-117 [facility] Work Phone: ALT [Catalytic activity/Vol] 13 U/L 13-56 [facility] Work Phone: CO2 [Moles/Vol] 26.0 mmol/L 21.0-32.0 [facility] Work Phone: Globulin (S) [Mass/Vol] 4.1 g/dL 2.2-4.2 [facility] Work Phone: Urea nitrogen/Creatinine [Mass ratio] 10.3 mg/mg 10-20 [facility] Work Phone: No Panel Informationon 11-20 Estimated GFR (MDRD) Amer 99 mL/min >60 [facility] Work Phone: Comment on above: GFR Calc Estimated GFR (MDRD) Non-Af Amer 82 mL/min >60 [facility] Work Phone: [phone] Comment on above: Non- GFR Calc [place] Level 0.80 mmol/L 0.60-1.20 [facility] Work Phone: [phone] Thyroid Stimulating Hormone (TSH) 5.09 uIU/mL 0.358-3.74 [facility] Work Phone: [phone] Vitamin D 25-Hydroxy 11.7 ng/mL [facility] Work Phone: [phone] Comment on above: Vitamin D 25(OH) Sta tus Range Deficiency <20 ng/mL (50nmol/L) Insufficiency 20 - 30 ng/mL (50 - 75 nmol/L) Sufficiency 30 - 100 ng/mL (75 - 250 nmol/L) Toxicity >100 ng/mL (>250 nmol/L) Serum or plasma albumin adina urement (mass/volume)on 11-20-2021 Albumin [Mass/Vol] 3.7 g/dL 3.2-5.0 [facility] Work Phone: [phone] Serum or plasma albumin/glob ulin mass ratioon 11-20-2021 Albumin/Globulin [Mass ratio] 0.9 {ratio} 0.9-2.4 [facility] Work Phone: [phone] Serum or plasma calcium adina urement (mass/volume)on 11-20-2021 Calcium [Mass/Vol] 9.1 mg/dL 8.5-10.1 [facility] Work Phone: [phone] Serum or plasma creatinine m easurement (mass/volume)on 11-20-2021 Creatinine [Mass/Vol] 0.78 mg/dL 0.55-1.02 [facility] Work Phone: Comment on above: The validity of the calculated GFR & GFRAA in patients over 70 years has not been determined. Clinical correlation is essential. Serum or plasma prolactin me asurement (mass/volume)on 11-20-2021 Prolactin [Mass/Vol] 89.6 ng/mL [facility] Work Phone: Comment on above: NORMAL REFERENCE RAN GES FEMALE NON- 2.2 - 30.3 ng/mL 8.1 - 347.6 ng/mL POST-MENOPAUSAL 0.7 - 31.5 ng/mL MALE 2.5 - 17.4 ng/mL Serum or plasma urea nitroge n measurement (mass/volume)on 11-20-2021 Urea nitrogen [Mass/Vol] 8 mg/dL 7-18 [facility] Work Phone: Thin prep Papanicolaou smear with manual screeningon 11-20-2021 Thin prep Papanicolaou smear with manual screening 11 U/L 15-37 [facility] Work Phone: Thin prep Papanicolaou smear with manual screening 6 5-15 [facility] Work Phone: Absolute lymphocyte counton 07-17-2021 Lymphocytes Auto (Unsp spec) [#/Vol] 1.71 10*3/uL 0.83-4.51 [facility] Work Phone: Basophil percentageon 2021 Basophils/100 WBC (Bld) 0.5 % 0-1 [facility] Work Phone: Bilirubin [Mass/Vol] 0.30 mg/dL 0.20-1.00 [facility] Work Phone: Comment on above: For patients on eltr ombopag therapy, use of Dimension [place] TBIL is not recommended. Chloride [Moles/Vol] 106 mmol/L 98-107 [facility] Work Phone: Eosinophils/100 WBC (Bld) 1.2 % 0-5 [facility] Work Phone: Glucose [Mass/Vol] 120 mg/dL 74-106 [facility] Work Phone: Comment on above: Fasting Glucose resu lt from 100 to 125 mg/dL suggests IMPAIRED HOMEOSTASIS per A.D.A. criteria. Neutrophils (Bld) [#/Vol] 4.3 10*3/uL 2.0-7.7 [facility] Work Phone: Neutrophils/100 WBC (Bld) 66.0 % 47-70 [facility] Work Phone: Potassium [Moles/Vol] 3.7 mmol/L 3.5-5.1 [facility] Work Phone: Protein [Mass/Vol] 7.9 g/dL 6.4-8.2 [facility] Work Phone: Sodium [Moles/Vol] 139 mmol/L 136-145 [facility] Work Phone: WBC (Bld) [#/Vol] 6.5 10*3/uL 4.4-11.0 [facility] Work Phone: Blood erythrocytes count (nu mber/volume)on 07-17-2021 RBC (Bld) [#/Vol] 4.88 10*6/uL 4.2-5.4 [facility] Work Phone: Blood hemoglobin measurement (mass/volume)on 07-17-2021 Hemoglobin (Bld) [Mass/Vol] 14.8 g/dL 12.0-15.0 [facility] Work Phone: Blood lymphocytes/100 leukoc yteson 07-17-2021 Lymphocytes/100 WBC (Bld) 26.2 % 19-41 [facility] Work Phone: Blood monocytes/100 leukocyt eson 07-17-2021 Monocytes/100 WBC (Bld) 5.8 % 0-10 [facility] Work Phone: Blood platelet mean volumeon 07-17-2021 Platelet mean volume (Bld) [Entitic vol] 10.0 fL 6.2-12.0 [facility] Work Phone: Determination of erythrocyte mean corpuscular volume (MCV)on 07-17-2021 MCV (RBC) [Entitic vol] 90.0 fL 81-99 [facility] Work Phone: [phone] Hematocrit Auto (Bld) [Volum e fraction]on 07-17-2021 Hematocrit (Bld) [Volume fraction] 43.9 % 37-47 [facility] Work Phone: [phone] Laboratory - Chemistry and C hemistry - challengeon 07-17-2021 ALP [Catalytic activity/Vol] 68 U/L 45-117 [facility] Work Phone: [phone] ALT [Catalytic activity/Vol] 17 U/L 13-56 [facility] Work Phone: [phone] CO2 [Moles/Vol] 29.0 mmol/L 21.0-32.0 [facility] Work Phone: [phone] Globulin (S) [Mass/Vol] 4.1 g/dL 2.2-4.2 [facility] Work Phone: [phone] Urea nitrogen/Creatinine [Mass ratio] 9.5 mg/mg 10-20 [facility] Work Phone: [phone] Laboratory - Hematology and Cell countson 07-17-2021 Erythrocyte distribution width (RBC) [Entitic vol] 38.7 fL 35.1-43.9 [facility] Work Phone: [phone] Erythrocyte distribution width (RBC) [Ratio] 11.9 % 11.6-14.6 [facility] Work Phone: [phone] Immature granulocytes/100 WBC (Bld) 0.300 % 0.0-0.9 [facility] Work Phone: [phone] Comment on above: IG% - Immature Granu locytes (promyelocytes, myelocytes and metamyelocytes) > 1% indicates that a LEFT SHIFT is Present. MCH (RBC) [Entitic mass] 30.3 pg 27.0-32.0 [facility] Work Phone: [phone] Nucleated RBC/100 WBC (Bld) [Ratio] 0 % 0-5 [facility] Work Phone: [phone] MCHC Auto (RBC) [Mass/Vol]on 07-17-2021 MCHC (RBC) [Mass/Vol] 33.7 g/dL 32-36 [facility] Work Phone: No Panel Informationon 07-17 Estimated GFR (MDRD) Amer 90 mL/min >60 [facility] Work Phone: Comment on above: GFR Calc Estimated GFR (MDRD) Non-Af Amer 75 mL/min >60 [facility] Work Phone: Comment on above: Non- GFR Calc Thyroid Stimulating Hormone (TSH) 1.33 uIU/mL 0.358-3.74 [facility] Work Phone: Platelets bldon 07-17-2021 Platelets (Bld) [#/Vol] 220 10*3/uL 150-450 [facility] Work Phone: Serum or plasma albumin adina urement (mass/volume)on 07-17-2021 Albumin [Mass/Vol] 3.8 g/dL 3.2-5.0 [facility] Work Phone: Serum or plasma albumin/glob ulin mass ratioon 07-17-2021 Albumin/Globulin [Mass ratio] 0.9 {ratio} 0.9-2.4 [facility] Work Phone: Serum or plasma calcium adina urement (mass/volume)on 07-17-2021 Calcium [Mass/Vol] 8.9 mg/dL 8.5-10.1 [facility] Work Phone: Serum or plasma creatinine m easurement (mass/volume)on 07-17-2021 Creatinine [Mass/Vol] 0.84 mg/dL 0.55-1.02 [facility] Work Phone: Comment on above: The validity of the calculated GFR & GFRAA in patients over 70 years has not been determined. Clinical correlation is essential. Serum or plasma urea nitroge n measurement (mass/volume)on 07-17-2021 Urea nitrogen [Mass/Vol] 8 mg/dL 7-18 [facility] Work Phone: Thin prep Papanicolaou smear with manual screeningon 07-17-2021 Thin prep Papanicolaou smear with manual screening 14 U/L 15-37 [facility] Work Phone: Thin prep Papanicolaou smear with manual screening 4 5-15 [facility] Work Phone: Vital Signs Date Time Vital Sign Value Performing Clinician Jeni reina 12-19-2022 22:56-0400 Diastolic blood pressure 114 mm[Hg] [facility] 12-19-2022 22:56-0400 Heart rate 56 /min [facility] 12-19-2022 22:56-0400 Respiratory rate 17 /min [facility] 12-19-2022 22:56-0400 Systolic blood pressure 155 mm[Hg] [facility] 12-19-2022 21:20-0400 Body height 152.4 cm [facility] 12-19-2022 21:20-0400 Body mass index (BMI) [Ratio] 27.3 kg/m2 [facility] 12-19-2022 21:20-0400 Body temperature 97.4 [degF] [facility] 12-19-2022 21:20-0400 Body weight 63.45 kg [facility] 12-19-2022 21:20-0400 SaO2% (BldA) [Mass fraction] 97 % [facility] Encounters Encounter Date Encounter Type Care Provider Facility Start: 04-13-2024 End: 04-13-2024 [facility] Facility:[facility] Start: 04-13-2024 End: 04-13-2024 ambulatory [facility] Facility:[facility] Start: 12-29-2023 End: 12-29-2023 ambulatory [facility] Facility:[facility] Start: 12-23-2023 End: 12-23-2023 ambulatory [facility] Facility:[facility] Start: 12-23-2023 End: 12-23-2023 ambulatory [facility] Facility:[facility] Start: 12-22-2023 End: 12-22-2023 ambulatory [facility] Facility:[facility] Start: 12-01-2023 ambulatory Aryantran Denise Facility:[facility] Start: 10-13-2023 Encounter for genera l adult medical examination without abnormal findings [facility] Start: 10-13-2023 End: 10-13-2023 ambulatory [facility] Facility:[facility] Start: 10-13-2023 End: 10-13-2023 ambulatory [facility] Facility:[facility] Start: 07-09-2023 ambulatory PELON HUGGINS Facility:[facility] Start: 06-21-2023 End: 07-08-2023 Discharged Recurring [facility] Work Phone: Start: 06-21-2023 End: 07-08-2023 ambulatory PELON HUGGINS [facility] Work Phone: Start: 04-12-2023 End: 04-12-2023 ambulatory [facility] Work Phone: Start: 04-12-2023 End: 04-12-2023 Patient encounter procedure [facility], Phy Office 3rd Flr Start: 04-08-2023 End: 04-08-2023 ambulatory [facility] Work Phone: Start: 04-08-2023 End: 04-08-2023 Patient encounter procedure [facility] Work Phone: Start: 03-25-2023 End: 03-25-2023 ambulatory [facility] Work Phone: Start: 03-25-2023 End: 03-25-2023 Patient encounter procedure [facility], Phy Office 3rd Flr Start: 03-01-2023 End: 03-01-2023 Patient encounter procedure [facility],Futu re Work Phone: Start: 02-23-2023 End: 02-23-2023 ambulatory [facility] Work Phone: Start: 02-23-2023 End: 02-23-2023 Patient encounter procedure [facility], Phy Office 3rd Flr Start: 01-21-2023 End: 01-21-2023 ambulatory [facility] Work Phone: Start: 01-21-2023 End: 01-21-2023 Patient encounter procedure [facility], Phy Office 3rd Flr Start: 12-25-2022 End: 12-25-2022 ambulatory [facility] Work Phone: Start: 12-25-2022 End: 12-25-2022 Patient encounter procedure [facility] Work Phone: Start: 12-21-2022 End: 12-21-2022 ambulatory [facility] Work Phone: Start: 12-21-2022 End: 12-21-2022 Patient encounter procedure [facility], Phy Office 3rd Flr Start: 12-19-2022 End: 12-19-2022 Emergency department patient visit [facility] Work Phone: Start: 12-18-2022 End: 12-18-2022 ambulatory [facility] Work Phone: Start: 12-18-2022 End: 12-18-2022 [facility] Start: 08-12-2022 End: 08-12-2022 ambulatory [facility] Work Phone: Start: 08-12-2022 End: 08-12-2022 Patient encounter procedure [facility]Out[facility] Breast Imaging Start: 07-23-2022 End: 07-23-2022 ambulatory [facility] Work Phone: Start: 07-23-2022 End: 07-23-2022 Patient encounter procedure [facility] Start: 01-15-2022 End: 01-15-2022 ambulatory [facility] Work Phone: Start: 01-15-2022 End: 01-15-2022 Patient encounter procedure [facility], Phy Office 3rd Flr Start: 11-20-2021 End: 11-20-2021 Patient encounter procedure [facility] Start: 08-05-2021 End: 08-05-2021 Patient encounter procedure [facility]Out[facility] Breast [facility] Start: 07-17-2021 End: 07-17-2021 Patient encounter procedure [facility], Phy Office 3rd Flr Procedures Date Procedure Procedure Detail Performing Clinician Start: 04-12-2023 Urine culture Start: 12-19-2022 CT of head without contrast Start: 12-18-2022 Urine culture Start: 08-12-2022 Ultrasonography of limb Start: 08-12-2022 Screening mammography Start: 08-05-2021 Screening mammography Plan of Treatment Date Care Activity Detail Author Start: 04-12-2023 [facility] Start: 04-12-2023 Bacteria identified in Urine by Culture [facility] Start: 12-18-2022 Bacteria identified in Urine by Culture [facility] Start: 12-18-2022 [facility] Patient Education ED Dizziness, Uncertain Cause [facility] Work Phone: Patient referral [facility] Work Phone: Payers Date Payer Category Payer Self-pay [id number] 2003 Medicare [id number] Medicaid [id number] Unknown [id number] 2.16.8 [id number] Unknown [id number] 2.16.8 [id number] Unknown [id number] 2.16.8 [id number] Unknown [id number] 2.16.8 [id number] Unknown [id number] 2.16.8 [id number] Unknown [id number] 2.16.8 [id number] Unknown [id number] 2.16.8 [id number] Unknown [id number] 2.16.8 [id number] Unknown [id number] 2.16.8 [id number] Unknown [id number] 2.16.8 [id number] Unknown [id number] 2.16.8 [id number] Social History Date Type Detail Facility Start: 07-16-2020 End: 12-19-2022 Tobacco smoking status NHIS Unknown if ever smoked [facility] Start: 1965 Sex Assigned At Female [facility] Mental Status Date Assessment Result Facility 12-19-2022 Cognitive function Level Of Cons ciousness Awake;Alert;Appropriate;Follow s Commands [facility] Work Phone: Evaluation note Note Date & Type Note Facility Evaluation note No assessment information availa ble [facility] Work Phone: Chief Complaint and Reason for Visit Chief Complaint SCREENING Chief Complaint dizziness Chief Complaint dizziness NEED LAB ORDER Chief Complaint dizziness NEED LAB ORDER S/O +ADDT ORDERS Chief Complaint S/O +ADDT ORDERS [id number] Advance Directives No Advanced Directives Records Found Advance Directive Response Recorded Date/ Time Living Will No December 19 3 9:28pm Power of Building Serviceman No December 19, 2 023 9:28pm Advance Directive Response Recorded Date/ Time Living Will No December 19 3 8:28pm Power of Building Serviceman No December 19, 2 023 8:28pm Summary Purpose Family History No Family History Records Found Additional Source Comments Goals (unrecognized section and content) Goals may be documented in a n alternate sectionGoals may be documented in an alternate sectionGoals may be documented in an alternate sectionGoals may be documented in an alternate sectionGoals may be documented in an alternate sectionGoals may be documented in an alternate sectionGoals may be documented in an alternate sectionGoals may be documented in an alternate sectionGoals may be documented in an alternate sectionGoals may be documented in an alternate sectionGoals may be documented in an alternate sectionGoals may be documented in an alternate sectionGoals may be documented in an alternate sectionGoals may be documented in an alternate section Care Teams (unrecognized sec tion and content) Team Status: Active Member Role Status Dates Dr. Perez Martin MD Family Provider Active Dr. Mahin Tohmas MD Primary Care Provider Active Team Status: Inactive Member Role Status Dates Dr. Mahin Thomas MD Primary Care Provi destiney, Attending Provider, Referring Provider Active Team Status: Inactive Member Role Status Dates Dr. Mahin Thomas MD Primary Care Provider, Attending Provider Active Team Status: Active Member Role Status Dates Dr. Mahin Thomas MD Primary Care Provi destiney, Attending Provider, Referring Provider Active Team Status: Inactive Member Role Status Dates Dr. Mahin Thomas MD Primary Care Provider Active Dr. Gabo Zaragoza DO Emergency Provider Active Team Status: Active Member Role Status Dates Dr. Mahin Thomas MD Primary Care Provider Active PELON HUGGINS LAW[employer] REPAIR MECHANIC-C Attending Provider Active Team Status: Inactive Member Role Status Dates Dr. Mahin Thomas MD Primary Care Provider Active Dr. Gabo Zaragoza DO Attending Provider, [facility] Active Team Status: Inactive Member Role Status Dates Dr. Mahin Thomas MD Primary Care Provider Active PELON HUGGINS [employer] REPAIR MECHANIC-Chris Attending Provider Active Team Status: Inactive Member Role Status Dates Dr. Mahin Thomas MD Primary Care Provider Active PELON HUGGINS NP-C Attending Provider, Referring Prov ider Active Team Status: Active Member Role Status Dates Dr. Mahin Thomas MD Primary Care Provider, Attending Provider Active INFORMATION SOURCE (unrecogn ized section and content) DATE CREATED AUTHOR 05/21/2024 [facility] FOR RECORDS PERTAINING TO PATIENTS WHO ARE OR HAVE BEEN ENROLLED IN A CHEMICAL DEPENDENCY/SUBSTANCEABUSE PROGRAM, SOME INFORMATION MAY BE OMITTED. This clinical summary was aggregated from multiple sources. Caution should be exercised in using it in the provision of clinical care. This summary normalizes information from multiple sources, and as a consequence, information in this document may materially change the coding, format and clinical context of patient data. In addition, data may be omitted in some cases. CLINICAL DECISIONS SHOULD BE BASED ON THE PRIMARY CLINICAL RECORDS. [employer] [facility]. provides no warranty or guarantee of the accuracy or completeness of information in this document.
[2024-12-06 04:07] LABS: PROLACTIN 77.8 ng/mL (3.6-25.2)
== END | disposition home or self-care (01) ==
LOC: LAB 08:59
PROVIDERS: PCP Internal Medicine
DX: Z51.81 Encounter for therapeutic drug level monitoring (principal); Z79.899 Other long term (current) drug therapy
CPT/HCPCS: 36415; 80053; 80178; 84146; 84443; 85025

== ENCOUNTER → 2025-01-09 | Outpatient (CLI) | payer OTHER, SELFPAY ==
--- NOTE | 2025-01-09 12:30 | BI_ITS ---
EXAM: SCRN MAMM (CAD)W/ALINE BILAT DATE: 01/09/2025 CLINICAL HISTORY: F, Age 59 y/o , BREAST CANCER SCREENING Personal history of breast cancer. Prior right lumpectomy. TECHNIQUE: Procedure Code: [id number] Modality: MG Procedure: SCRN MAMM (CAD)W/ALINE BILAT COMPARISON: Prior exam(s) dated December 29, 2023.. FINDINGS: TISSUE DENSITY: There are scattered areas of fibroglandular density. Bilateral Breast Mammographic Findings: No significant masses, calcifications or other abnormalities are identified. Once again, the patient is status post lumpectomy in the deep central axillary region of the right breast with postoperative scarring and breast deformity. No cluster of microcalcification or mass lesion is seen. Stable small bilateral axillary lymph nodes. No suspicious masses, areas of developing architectural distortion, or suspicious calcifications. There has been no significant interval change. BI/SCRN MAMM (CAD)W/ALINE BILAT IMPRESSION: Stable bilateral screening mammogram. OVERALL FINAL ASSESSMENT BI-RADS 2: BENIGN RECOMMENDATION: Routine annual follow-up in 1 Year A letter with findings and recommendations will be mailed to the patient. Reading Location: [place] [id number]
== END | disposition home or self-care (01) ==
PROVIDERS: PCP Internal Medicine; Referring Provider Internal Medicine; Visit Provider Internal Medicine
DX: Z12.31 Encounter for screening mammogram for malignant neoplasm of breast (principal)
CPT/HCPCS: 77063; 77067

== ENCOUNTER 2025-04-17 08:06 | Outpatient (CLI) | payer MEDICARE, SELFPAY ==
[2025-04-17 10:32] LABS: Lithium 0.44 mmol/L (0.60-1.20)
[2025-04-17 10:43] LABS: Hematocrit 45.5 % (37-47); Hemoglobin 15.1 g/dL (12.0-15.0); Immature Granulocytes Count 0.020 X10^3/uL (0.0-0.0); Mean Corp Hgb Conc 33.2 g/dL (32-36); Mean Corpuscular Volume 91.7 fL (81-99); Mean Platelet Vol. 9.9 fl (6.2-12.0); NRBC Flagged by Analyzer 0 % (0-5); Platelet Count 216 K/mm3 (150-450); RBC Distribution Width CV 12.0 % (11.6-14.6); RBC Distribution Width SD 40.3 fl (35.1-43.9); Red Blood Count 4.96 M/mm3 (4.2-5.4); White Blood Count 8.8 K/mm3 (4.4-11.0)
[2025-04-17 10:55] LABS: AST(SGOT) 23 U/L (<=31); Alanine Aminotransfer ALT/SGPT 14 U/L (<=34); Albumin, Serum 4.4 g/dL (3.4-4.8); Alkaline Phosphatase 65 U/L (35-104); Anion Gap 12 (5-15); BUN 7 mg/dL (4-19); BUN/Creat Ratio 7.0 RATIO (10-20); Calcium,Total 9.7 mg/dL (7.6-11.0); Carbon Dioxide 24.5 mmol/L (21.0-32.0); Chloride 105 mmol/L (98-108); Globulin 3.1 g/dL (2.2-4.2); Glucose 120 mg/dL (70-99); Potassium 3.8 mmol/L (3.3-5.1)
[2025-04-18 04:07] LABS: PROLACTIN 144.0 ng/mL (3.6-25.2)
== END 2025-04-17 23:59 | disposition home or self-care (01) ==
LOC: LAB 08:12
PROVIDERS: PCP Internal Medicine
DX: R53.83 Other fatigue (principal); Z51.81 Encounter for therapeutic drug level monitoring
CPT/HCPCS: 36415; 80053; 80178; 84146; 85025